=== PATIENT | male | born 1980 | race Caucasian/White ===

== ENCOUNTER 2024-05-05 14:44 | Outpatient (REF) | payer OTHER, SELFPAY ==
[2024-05-05 17:48] LABS: Alanine Aminotransferase 60 U/L (0-40); Albumin Level 4.7 g/dL (3.5-5.0); Alkaline Phosphatase 81 U/L (39-117); Aspartate Amino Transferase 25 U/L (5-37); Bilirubin Direct 0.1 mg/dL (0.0-0.5); Bilirubin Total 0.8 mg/dL (0.0-1.0); Cholesterol 283 mg/dL (<200); HDL Cholesterol 41 mg/dL (>40); Lipase 20 U/L (8-78); Total Protein 7.4 g/dL (6.5-8.0); Triglycerides 994 mg/dL (<150)
[2024-05-05 18:03] LABS: TSH reflex Free T4 1.76 uIU/mL (0.32-4.0)
[2024-05-05 18:17] LABS: Folate 6.8 ng/mL (> or = 4.0); Vitamin B12 362 pg/mL (200-900)
[2024-05-08 21:28] LABS: Transglutaminase Ab IgG <1.0 U/mL; Transglutaminase IgA <1.0 U/mL
[2024-05-10 13:53] LABS: Vitamin D 25-OH, D2 <4 ng/mL; Vitamin D 25-OH, D3 17 ng/mL; Vitamin D 25-OH, Total 17 ng/mL (30-100)
== END 2024-05-05 14:45 | disposition home or self-care (01) ==
LOC: HO.LAB 14:44
PROVIDERS: PCP Internal Medicine; Visit Provider Nurse Practitioner Family
DX: R10.9 Unspecified abdominal pain (principal); I25.10 Atherosclerotic heart disease of native coronary artery without angina pectoris; K59.00 Constipation, unspecified; E55.9 Vitamin D deficiency, unspecified
CPT/HCPCS: 36415; 80061; 80076; 82306; 82607; 82746; 83690; 84443; 86364

== ENCOUNTER 2024-05-05 14:44 | Outpatient (AMB) | payer OTHER, SELFPAY ==
--- NOTE | 2024-05-05 15:02 | A.OFFVIS_ITS ---
Vital Signs 05/05/24 15:14 Height 5 ft 7 in Weight 207 lb 10.807 oz BMI 32.5 BP 130/62 Blood Pressure Location Lt brachial Position Sitting Pulse 72 Pulse Source Pulse Oximeter Pulse Oximetry (%) 96 Oxygen Delivery Method Room Air Intake Visit Reasons: Abdominal pain Intake Note: Evelio presents in office today for an initial assessment visit. CC: Pt reports recent admission to [facility] ED x2 mos ago. Pt had started at and was transferred to ED based on concerns of possible bowel blockage. Pt reports that they had also noticed the presence of a moderate sized lump in the RLQ into their R flank. Pt states that this became worse after being seen at the ED. Pt reports presence of GERD sx, N/V, excessive flatulence and constipation and diarrhea intermittently. Pt states that they are frequently having abnormal stools and have not seen a normal BM for the past few months. Pt also reports that they have noticed that they have to have a BM almost immediately after eating. This does not happen with all intake, but happens frequently. Pt denies any previous of colo, or EGD. Pt does have pertinent family hx. Clinical Admissions Manager Required: No Accompanied by: Spouse Allergies amoxicillin Allergy (Intermediate, Verified 05/05/24 15:13) Rash Penicillins Allergy (Intermediate, Verified 05/05/24 15:13) Rash HPI HPI Abdominal pain: Details: 44-year-old male with no significant past medical history sent to us by urgent care provider. Patient is accompanied by his . Patient recently changed she was PCP currently is with [facility] and. In the past 4 months patient has been dealing with multiple GI symptoms. Patient states that he is having epigastric pain postprandially depending on what he eats. Patient has epigastric pain when he eats pizza and bread. Patient states that he feels very bloated and full. No no family or personal history of celiac disease. Patient was seen at urgent care and was sent to [facility] where he was told that nothing acute was going on and was sent home with MiraLax. Patient reports occasional nausea without vomiting. Reports occasional dyspepsia. Denies dysphagia or odynophagia. Patient denies any melena, hematochezia, unintentional weight loss or ribbon like stools. Patient does report that he feels like he is constipated. Reports occasional postprandial loose stool depending on what he eats, however for the most part he feels very constipated. Patient's white free ports that there is days when he is so bloated that his abdomen is very hard. Patient reports to be feeling gassy. Reports to have pain in his right lumbar and upper quadrant. Patient reports that sometimes the pain is very strong, sharp like pain. Patient states that he feels tender when he touches it. Patient also reports that he notices bulging when this happens. Patient states that when he presses he is able to belch and he feels relief. Patient reports that he is not on any particular diet, he states that he is trying to eat healthy. No restrictions so far. Open to any suggestions. PFSH Surgical History Hx of blepharoplasty [place] teeth extracted Family History Maternal Grandmother Colon cancer Maternal Aunt Colon cancer Father Pancreatic adenoma Social History Alcohol intake: current Comment: Socially typically. Pt typically has a few drinks/week. Patient Tobacco Use Status: Never used Tobacco Substance Use Type: Marijuana Review of Systems Const Denies weight gain and Denies weight loss ENT Reports no additional complaints, Reports dysphagia (Occasional) and Denies odynophagia Card Reports no additional complaints Resp Reports no additional complaints GI Reports abdominal pain, Reports belching, Denies melena, Reports bloating, Reports constipation, Reports dysphagia (Occasional), Denies excessive flatus, Reports dyspepsia, Reports heartburn, Denies diarrhea, Reports loose stools (Occasional postprandially), Denies nausea, Denies odynophagia and Denies vomiting Reports no additional complaints Musc Reports no additional complaints Neuro Reports no additional complaints Psych Reports no additional complaints Endo Reports no additional complaints Physical Exam Vital Signs: Last Vital Signs Pulse 72 05/05/24 15:14 BP 130/62 05/05/24 15:14 Pulse Ox 96 05/05/24 15:14 Oxygen Delivery Method Room Air 05/05/24 15:14 BMI result Body Mass Index 32.5 Const General: healthy appearing, no acute distress and well developed Nutritional Appearance: well nourished Orientation/consciousness: patient oriented x3 Resp Effort & Inspection: normal respiratory effort, able to speak in complete sentences, no tracheal deviation and symmetric chest movement Auscultation: clear to auscultation bilaterally Cardio Rate: regular rate GI Other: Right upper and lumbar area small tenderness area with some bulging suspecting ventral hernia. Inspection: Yes normal to inspection and No distended Palpation (GI): Soft to palpation, not firm, Tenderness to palpation present (GI) and No hepatosplenomegaly present Auscultation: Hypoactive bowel sounds present General: Yes no CVA tenderness Back/Spine/Pelvis Back: no CVA tenderness Skin General skin exam: elasticity normal, turgor normal and dry skin Neuro General: patient oriented x3 Psych Appearance: grossly normal Mental Status: mental status grossly normal Assessment & Plan Assessment & Plan (1) Postprandial abdominal bloating: Code(s): R14.0 - Abdominal distension (gaseous) (2) Postprandial epigastric pain: Code(s): R10.13 - Epigastric pain (3) GERD (gastroesophageal reflux disease): Code(s): K21.9 - Gastro-esophageal reflux disease without esophagitis Qualifiers: Esophagitis presence: esophagitis presence not specified Qualified Code(s): K21.9 - Gastro-esophageal reflux disease without esophagitis (4) Chronic idiopathic constipation: Code(s): K59.04 - Chronic idiopathic constipation (5) IBS (irritable bowel syndrome): Code(s): K58.9 - Irritable bowel syndrome, unspecified Qualifiers: Irritable bowel syndrome type: with both diarrhea and constipation Qualified Code(s): K58.2 - Mixed irritable bowel syndrome Plan Will start patient on Nexium daily. Patient states that he was given script for omeprazole, however he feels like it is not really helping that much. Alleviates some symptoms but he continues to have acid reflux and dyspepsia. Occasional dysphagia without odynophagia. Patient has predominant lead constipation, however he will have loose stools depending on what he eats. Will give him script for Dulcolax and will get probiotics and fiber to help him bulk stools. Will rule out celiac, pancreatitis, transaminitis, check his thyroid as well as vitamin D, B12 and folate levels. Mild tenderness to right side of his abdomen, small bulging when coughing. Patient will be sent for ultrasound to rule out ventral hernia and to see General surgery for initial consultation. He will follow-up in our office in 6-8 weeks, sooner if he will develop worsening symptoms. Both patient and his are agreeable to plan of care and verbalizes understanding of instructions. They were given the opportunity to ask questions and all questions answered. Thank you for allowing me to participate in his care Orders: Orders Lipase Today R10.9 - Unspecified abdominal pain Vitamin B12 and Folate Today R19.7 - Diarrhea, unspecified Lipid Panel Today I25.10 - Atherosclerotic heart disease of [place] coronary artery without angina pectoris Liver Panel Today R74.01 - Elevation of levels of liver transaminase levels Pancreatic Elastase-1 Today R10.9 - Unspecified abdominal pain Transglutaminase Ab IgG Today R10.9 - Unspecified abdominal pain Transglutaminase IgA Today R10.9 - Unspecified abdominal pain TSH reflex Free T4 Today K59.00 - Constipation, unspecified Vitamin D 25-OH (D2 and D3) Today E55.9 - Vitamin D deficiency, unspecified US abdomen limited Today K43.9 - Ventral hernia without obstruction or gangrene Referrals General Surgery Referral K43.9 - Ventral hernia without obstruction or gangrene Medications: New esomeprazole magnesium (Nexium) 40 mg PO DAILY 30 caps 5RF K21.9 - Gastro- esophageal reflux disease without esophagitis bisacodyl (Dulcolax (bisacodyl)) 10 mg (2 x 5 mg) PO BEDTIME 180 tabs 4RF Coding Level of Care Code New Pt Level 4 (18068) Diagnoses Postprandial abdominal bloating R14.0 Postprandial epigastric pain R10.13 Gastroesophageal reflux disease, unspecified whether esophagitis present K21.9 Esophagitis presence: esophagitis presence not specified Chronic idiopathic constipation K59.04 Irritable bowel syndrome with both constipation and diarrhea K58.2 Irritable bowel syndrome type: with both diarrhea and constipation Time Spent (min) 45 Comment 30 minutes spent with patient and additional 15 minutes spent reviewing his records
[2024-05-05 15:14] VITALS: BP 130/62; PULSE 72; O2SAT 96; BMI 32.5
== END 2024-05-05 15:52 | disposition home or self-care (01) ==
PROVIDERS: PCP Internal Medicine; Visit Provider Nurse Practitioner Family
DX: R14.0 Abdominal distension (gaseous) (principal); R10.13 Epigastric pain; K21.9 Gastro-esophageal reflux disease without esophagitis; K59.04 Chronic idiopathic constipation; K58.2 Mixed irritable bowel syndrome
CPT/HCPCS: 99204

== ENCOUNTER 2024-05-15 14:26 | Outpatient (REF) | payer OTHER, SELFPAY ==
[2024-05-24 21:44] LABS: Pancreatic Elastase-1 >500 mcg/g
== END 2024-05-15 14:27 | disposition home or self-care (01) ==
LOC: HO.LNP 14:26
PROVIDERS: Visit Provider Nurse Practitioner Family
DX: R10.9 Unspecified abdominal pain (principal)
CPT/HCPCS: 82656

== ENCOUNTER 2024-05-16 08:59 | Outpatient (AMB) | payer OTHER, SELFPAY ==
--- NOTE | 2024-05-16 09:00 | A.OFFVIS_ITS ---
Vital Signs 05/16/24 09:06 Height 5 ft 7 in Weight 212 lb BMI 33.2 BP 108/51 L Blood Pressure Location Rt brachial Position Sitting Pulse 78 Intake Visit Reasons: Abdominal pain Intake Note: Patient referred by Lamar Ley NP for ventral hernia. Patient c/o: rt abdominal pain. U/S scheduled 05-22-24. Digital Account Manager Required: No Accompanied by: Self / Same As Patient Allergies amoxicillin Allergy (Intermediate, Verified 05/16/24 09:05) Rash Penicillins Allergy (Intermediate, Verified 05/16/24 09:05) Rash HPI Comments Details: Patient presents for evaluation of right flank pain. He has had this for several months time. It is improving. Patient was seen by Gastroenterology and was felt that this was abdominal wall issue and not a GI issue. He was scheduled for an ultrasound of the area. Initially patient had been seen at [facility] were he states there was a CT of the abdomen and pelvis which according to the patient was within normal limits. We will attempt to obtain those results. 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 He lifts heavy objects including tags and cases of beer. He has no acute other GI issues or complaints. Chart was reviewed and patient evaluated [facility] Surgical History Hx of blepharoplasty [place] teeth extracted Family History Maternal Grandmother Colon cancer Maternal Aunt Colon cancer Father Pancreatic adenoma Social History Alcohol intake: current Comment: Socially typically. Pt typically has a few drinks/week. Patient Tobacco Use Status: Never used Tobacco Substance Use Type: Marijuana Physical Exam Vital Signs: Last Vital Signs Pulse 78 05/16/24 09:06 BP 108/51 L 05/16/24 09:06 BMI result Body Mass Index 33.2 GI Other: Patient was examined both supine and standing with Valsalva. Mildly corpulent abdomen. Bilateral groin exam negative. Genitalia within normal limits. Abdomen benign. No umbilical hernia. Patient's area of symptoms in the right flank demonstrate no obvious external evidence of ecchymosis or bruising. No flank hernia demonstrated. Assessment & Plan Assessment & Plan (1) Right flank pain: Code(s): R10.9 - Unspecified abdominal pain Category: Surgical Plan At present, there are no acute surgical issues. Patient most probably had a muscle strain/pull and his symptoms are improving. He is scheduled for the ultrasound as noted above and I encouraged him to get this. CT scan results from [facility] also be obtained. Patient will otherwise follow-up p.r.n. or based on ultrasound findings he is to call the office for further follow-up. All questions answered. Coding Level of Care Code New Pt Level 4 (28992) Diagnoses Right flank pain R10.9
[2024-05-16 09:06] VITALS: BP 108/51; PULSE 78; BMI 33.2
== END 2024-05-16 09:16 | disposition home or self-care (01) ==
PROVIDERS: PCP Internal Medicine; Referring Provider Nurse Practitioner Family; Visit Provider Surgery
DX: R10.9 Unspecified abdominal pain (principal)
CPT/HCPCS: 99204

== ENCOUNTER → 2024-05-16 08:59 | Outpatient (BNVA) | payer OTHER, SELFPAY | PROVIDERS: PCP Internal Medicine; Referring Provider Nurse Practitioner Family; Visit Provider Surgery ==

== ENCOUNTER 2024-05-22 08:27 | Outpatient (REF) | payer OTHER, SELFPAY ==
--- NOTE | ~2024-05-22 | US_ITS ---
EXAMINATION: US ABDOMEN LIMITED CLINICAL INFORMATION: Ventral hernia without obstruction or gangrene. Right upper quadrant question ventral hernia. COMPARISON: None available. TECHNIQUE: Real-time imaging of the region of concern in the right flank and right lower quadrant. FINDINGS: No evidence of hernia. Incidentally noted 0.3 cm nonmobile adherent stone versus polyp in the gallbladder, otherwise normal appearance of the gallbladder. No discrete organized collection or mass. US/US abdomen limited IMPRESSION: 1. No significant abnormality. No evidence of hernia. 2. Incidentally noted 0.3 cm adherent stone versus polyp in the gallbladder, recommend follow-up with ultrasound in 6-12 months. Electronically signed by: Sintia Helm MD 05/22/2024 11:13 AM EDT
== END 2024-05-22 08:28 | disposition home or self-care (01) ==
LOC: HO.US 08:27
PROVIDERS: PCP Internal Medicine; Visit Provider Nurse Practitioner Family
DX: K43.9 Ventral hernia without obstruction or gangrene (principal)
CPT/HCPCS: 76705

== ENCOUNTER 2024-06-12 14:03 | Outpatient (AMB) | payer OTHER, SELFPAY ==
--- NOTE | 2024-06-12 14:08 | A.OFFVIS_ITS ---
Vital Signs 06/12/24 14:10 Height 5 ft 7 in Weight 212 lb BMI 33.2 BP 122/78 Blood Pressure Location Rt brachial Position Sitting Pulse 78 Intake Visit Reasons: Ventral Hernia Intake Note: Patient here to discuss ABD US from 05-22-24. Patient c/o: abdominal pain. 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 He has symptoms of moderately improved. Ultrasound of the area demonstrated no evidence of any hernia or any other defect. Incidental finding was of a 3 mm gallbladder polyp. [facility] Surgical History Hx of blepharoplasty [place] teeth extracted Family History Maternal Grandmother Colon cancer Maternal Aunt Colon cancer Father Pancreatic adenoma Social History Alcohol intake: current Comment: Socially typically. Pt typically has a few drinks/week. Patient Tobacco Use Status: Never used Tobacco Substance Use Type: Marijuana Physical Exam Vital Signs: Last Vital Signs Pulse 78 06/12/24 14:10 BP 122/78 06/12/24 14:10 BMI result Body Mass Index 33.2 GI Other: Abdomen moderately corpulent. Soft, benign. Mild right flank tenderness but improved from last visit. Assessment & Plan Assessment & Plan (1) Gallbladder polyp: Code(s): K82.4 - Cholesterolosis of gallbladder Category: Surgical Plan: 1. Patient will have a six-month follow-up surveillance ultrasound of the gallbladder to follow up with a polyp. 2. Right flank discomfort will be managed conservatively with nonsteroidal analgesics, warm compresses, and avoiding strenuous activities. All questions answered. Patient will see me as directed above or p.r.n.. Orders: Orders US abdomen limited 6 Months K82.4 - Cholesterolosis of gallbladder Coding Level of Care Code Est Pt Level 4 (99287) Diagnoses Gallbladder polyp K82.4
[2024-06-12 14:10] VITALS: BP 122/78; PULSE 78; BMI 33.2
== END 2024-06-12 14:19 | disposition home or self-care (01) ==
PROVIDERS: PCP Internal Medicine; Visit Provider Surgery
DX: K82.4 Cholesterolosis of gallbladder (principal)
CPT/HCPCS: 99214

== ENCOUNTER 2024-06-30 09:11 | Outpatient (AMB) | payer OTHER, SELFPAY ==
[2024-06-30 09:16] VITALS: BP 106/66; PULSE 66; O2SAT 98; BMI 32.0
--- NOTE | 2024-06-30 09:16 | A.OFFVIS_ITS ---
Vital Signs 06/30/24 09:16 Height 5 ft 7 in Weight 204 lb 2.369 oz BMI 32.0 BP 106/66 Blood Pressure Location Lt brachial Position Sitting Pulse 66 Pulse Source Pulse Oximeter Pulse Oximetry (%) 98 Oxygen Delivery Method Room Air Intake Visit Reasons: 8 week follow up Intake Note: Evelio presents in office today for a scheduled 8 week FUV. CC; Any changes or new sx since last visit? Pt wanted to discuss colo and EGD based on recent appt with Dr. Anderson. Any labs or diagnostics since last visit? ?Stool test done, imaging done. Medical Billing Service Required: No Allergies amoxicillin Allergy (Intermediate, Verified 06/30/24 09:16) Rash Penicillins Allergy (Intermediate, Verified 06/30/24 09:16) Rash HPI HPI 8 week follow up: Details: LAST VISIT: Postprandial abdominal bloating Postprandial epigastric pain GERD (gastroesophageal reflux disease) Chronic idiopathic constipation IBS (irritable bowel syndrome) Plan Will start patient on Nexium daily. Patient states that he was given script for omeprazole, however he feels like it is not really helping that much. Alleviates some symptoms but he continues to have acid reflux and dyspepsia. Occasional dysphagia without odynophagia. Patient has predominant lead constipation, however he will have loose stools depending on what he eats. Will give him script for Dulcolax and will get probiotics and fiber to help him bulk stools. Will rule out celiac, pancreatitis, transaminitis, check his thyroid as well as vitamin D, B12 and folate levels. Mild tenderness to right side of his abdomen, small bulging when coughing. Patient will be sent for ultrasound to rule out ventral hernia and to see General surgery for initial consultation. He will follow-up in our office in 6-8 weeks, sooner if he will develop worsening symptoms. Both patient and his are agreeable to plan of care and verbalizes understanding of instructions. They were given the opportunity to ask questions and all questions answered. ? Thank you for allowing me to participate in his care Orders Orders Lipase Today R10.9 Vitamin B12 and Folate Today R19.7 Lipid Panel Today I25.10 Liver Panel Today R74.01 Pancreatic Elastase-1 Today R10.9 Transglutaminase Ab IgG Today R10.9 Transglutaminase IgA Today R10.9 TSH reflex Free T4 Today K59.00 Vitamin D 25-OH (D2 and D3) Today E55.9 US abdomen limited Today K43.9 Referrals General Surgery Referral K43.9 Medications New esomeprazole magnesium (Nexium) 40 mg PO DAILY 30 caps 5RF K21.9 bisacodyl (Dulcolax (bisacodyl)) 10 mg (2 x 5 mg) PO BEDTIME 180 tabs 4RF TODAY'S VISIT Patient is here today for follow-up and to discuss lab results. Patient reports that he currently is feeling better. Takes omeprazole in the morning before breakfast. Increase fiber intake as well as taking supplement of fiber. Reports that he no longer has postprandial diarrhea. However occasionally dep ending on what he eats he might have postprandial loose stools. He is taking bisacodyl tablets at bedtime and is moving his bowels better. Lab work done and very high triglycerides. Patient denies any abdominal pain or discomfort. No prior history of pancreatitis. Admits to occasionally drinking about 2-3 times only. Patient denies any melena, hematochezia, unintentional weight loss or ribbon like stools. Patient reports family history of CRC. Feels like acid reflux is under better control with the Nexium. Patient also reports that he tried to change his diet. Patient was seen by general surgeon for what we thought was ventral hernia, however ultrasound was obtained and no abdominal hernias were identified. Currently patient denies having any abdominal pain. Incidental finding of gallbladder polyp which will be surveyed by another ultrasound in 6 months. Patient was found to have very high triglycerides. Patient does admit that when he was younger had elevated triglycerides and had to be on fenofibrate. Patient currently does not have PCP, we will try to help him find PCP within the work [facility] Medical History (Updated 06/30/24 @ 09:47 by Silvina Ley [employer]PER[employer]-) High triglycerides Surgical History Hx of blepharoplasty [place] teeth extracted Family History Maternal Grandmother Colon cancer Maternal Aunt Colon cancer Father Pancreatic adenoma Social History Alcohol intake: current Comment: Socially typically. Pt typically has a few drinks/week. Patient Tobacco Use Status: Never used Tobacco Substance Use Type: Marijuana Review of Systems Const Denies weight gain and Denies weight loss ENT Reports no additional complaints, Denies dysphagia and Denies odynophagia Card Reports no additional complaints Resp Reports no additional complaints GI Denies abdominal pain, Denies belching, Denies melena, Denies bloating, Denies change in bowel habits, Denies dysphagia, Denies excessive flatus, Denies dyspepsia, Denies heartburn, Denies diarrhea, Denies loose stools, Denies nausea, Denies odynophagia and Denies vomiting Reports no additional complaints Musc Reports no additional complaints Neuro Reports no additional complaints Psych Reports no additional complaints Endo Reports no additional complaints Physical Exam Vital Signs: Last Vital Signs Pulse 66 06/30/24 09:16 BP 106/66 06/30/24 09:16 Pulse Ox 98 06/30/24 09:16 Oxygen Delivery Method Room Air 06/30/24 09:16 BMI result Body Mass Index 32.0 Const General: healthy appearing, no acute distress and well developed Nutritional Appearance: well nourished Orientation/consciousness: patient oriented x3 Resp Effort & Inspection: normal respiratory effort, able to speak in complete sentences, no tracheal deviation and symmetric chest movement Auscultation: clear to auscultation bilaterally Cardio Rate: regular rate GI Other: Right upper and lumbar area small tenderness area with some bulging suspecting ventral hernia. Inspection: Yes normal to inspection and No distended Palpation (GI): Soft to palpation, not firm, Tenderness to palpation present (GI) and No hepatosplenomegaly present Auscultation: Hypoactive bowel sounds present General: Yes no CVA tenderness Back/Spine/Pelvis Back: no CVA tenderness Skin General skin exam: elasticity normal, turgor normal and dry skin Neuro General: patient oriented x3 Psych Appearance: grossly normal Mental Status: mental status grossly normal Results Reviewed Results Reviewed: Laboratory Tests 05/05/24 05/15/24 16:16 12:30 Total Bilirubin 0.8 Direct Bilirubin 0.1 AST 25 ALT 60 H Triglycerides 994 H Cholesterol 283 H Lipase 20 Vitamin B12 362 25-OH Vitamin D Total 17 L Folate 6.8 TSH 1.76 Stool Pancreat Elastase >500 Tiss Transglutamin IgG <1.0 Tiss Transglutamin IgA <1.0 Assessment & Plan Assessment & Plan (1) High triglycerides: Code(s): E78.1 - Pure hyperglyceridemia Category: Medical (2) Gallbladder polyp: Code(s): K82.4 - Cholesterolosis of gallbladder Category: Surgical (3) Postprandial abdominal bloating: Code(s): R14.0 - Abdominal distension (gaseous) (4) Postprandial epigastric pain: Code(s): R10.13 - Epigastric pain (5) GERD (gastroesophageal reflux disease): Code(s): K21.9 - Gastro-esophageal reflux disease without esophagitis Qualifiers: Esophagitis presence: esophagitis presence not specified Qualified Code(s): K21.9 - Gastro-esophageal reflux disease without esophagitis (6) Chronic idiopathic constipation: Code(s): K59.04 - Chronic idiopathic constipation (7) IBS (irritable bowel syndrome): Code(s): K58.9 - Irritable bowel syndrome, unspecified Qualifiers: Irritable bowel syndrome type: with both diarrhea and constipation Qualified Code(s): K58.2 - Mixed irritable bowel syndrome Plan Continue current management with Nexium. Continue avoiding dietary triggers and late night snacking. High triglycerides, patient will start taking fenofibrate, fish oil and niacin. Avoid alcohol and food high in fat. Increase fiber, fluid intake and activity to promote better bowel motility. Patient will return in 2- 3 months to discuss going for colonoscopy and upper endoscopy. Message sent to surgical schedulers to book procedure for patient. We will discuss prep next visit. He is agreeable to current plan of care and verbalizes understanding of instructions. He was given the opportunity to ask questions and all questions answered. Thank you for allowing me to participate in his care Medications: New cholecalciferol (vitamin D3) 100 mcg (2 x 50 mcg (2,000 unit)) PO DAILY 180 caps 3RF R79.89 - Other specified abnormal findings of blood chemistry bisacodyl (Dulcolax (bisacodyl)) take 4 tabs at noon the day before your colonoscopy 20 mg (4 x 5 mg) PO ONCE 1 day 4 tabs 0RF Z12.11 - Encounter for screening for malignant neoplasm of colon niacin 500 mg PO DAILY 90 tabs 2RF E78.1 - Pure hyperglyceridemia polyethylene glycol 3350 (Miralax) As directed by gastroenterology [facility] at [facility] 238 grams PO ONCE 238 grams 0RF Z12.11 - Encounter for screening for malignant neoplasm of colon fenofibrate 160 mg PO DAILY 90 tabs 2RF Coding Level of Care Code Est Pt Level 4 (65045) Diagnoses High triglycerides E78.1 Gallbladder polyp K82.4 Postprandial abdominal bloating R14.0 Postprandial epigastric pain R10.13 Gastroesophageal reflux disease, unspecified whether esophagitis present K21.9 Esophagitis presence: esophagitis presence not specified Chronic idiopathic constipation K59.04 Irritable bowel syndrome with both constipation and diarrhea K58.2 Irritable bowel syndrome type: with both diarrhea and constipation Time Spent (min) 35 Comment 20 minutes spent with patient and additional 15 minutes spent reviewing his records
== END 2024-06-30 09:57 | disposition home or self-care (01) ==
PROVIDERS: PCP Internal Medicine; Visit Provider Nurse Practitioner Family
DX: E78.1 Pure hyperglyceridemia (principal); K82.4 Cholesterolosis of gallbladder; R14.0 Abdominal distension (gaseous); R10.13 Epigastric pain; K21.9 Gastro-esophageal reflux disease without esophagitis; K59.04 Chronic idiopathic constipation; K58.2 Mixed irritable bowel syndrome
CPT/HCPCS: 99214

== ENCOUNTER → 2024-06-30 09:11 | Outpatient (BNVA) | payer OTHER, SELFPAY | PROVIDERS: PCP Internal Medicine; Visit Provider Nurse Practitioner Family ==

== ENCOUNTER 2024-08-23 11:00 | Outpatient (AMB) | payer OTHER, SELFPAY ==
[2024-08-23 11:28] VITALS: BP 110/60; PULSE 67; O2SAT 95; BMI 32.9
--- NOTE | 2024-08-23 11:28 | MHC.PC.OV ---
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 [place] Required: No Accompanied by: Self / Same As Patient Allergies amoxicillin Allergy (Intermediate, Verified 08/23/24 11:42) Rash Penicillins Allergy (Intermediate, Verified 08/23/24 11:42) Rash Medication List - Last Reconciled 08/23/24 by FERNANDO Chávez bisacodyl (Dulcolax (bisacodyl)) 10 mg (2 x 5 mg) PO BEDTIME bisacodyl (Dulcolax (bisacodyl)) 20 mg (4 x 5 mg) PO ONCE 1 day cholecalciferol (vitamin D3) 100 mcg (2 x 50 mcg (2,000 unit)) PO DAILY esomeprazole magnesium (Nexium) 40 mg PO DAILY fenofibrate 160 mg PO DAILY methylcellulose (laxative) (Fiber Therapy (methylcellulose)) PO niacin 500 mg PO DAILY polyethylene glycol 3350 (Miralax) 238 grams PO ONCE Tobacco use date assessed: 08/23/24 Dental Screening Dental Screen Date: 08/23/24 Did you have a dental visit in the last 12 months?: No Did you have a dental problem in the last 6 months where you did not have access to dental care?: No Was dental information given to patient?: No HPI 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 Mckoy, author Last visit: years ago Last PE: years Specialist:GI OBGYN:n/a Past medical history: asthma rescue inhaler, diverticulosis Family HX: both parents had ca (mom-multiple).father-started in penile then metastasize in prostate, both parents passed, father had high triglycerides The patient is a 44-year-old male presenting to establish care Patient reports that he is feeling okay. Denies chest pain, shortness of breath, heart palpitation or dizziness Reports that he has some stomach issues and has been seeing GI Reports that his symptoms were mainly constipation and heartburn Patient also reports that he was told before that he has high triglycerides And was started on medication along with dietary modifications He also reports low energy with improvement since started on vitamin-D Will have the patient do blood work and follow up in 2 weeks for physical PFSH Medical History (Updated 08/24/24 @ 17:52 by FERNANDO Chávez) High triglycerides Surgical History Hx of blepharoplasty [place] teeth extracted Family History Maternal Grandmother Colon cancer Maternal Aunt Colon cancer Father Pancreatic adenoma Social History Housing: House Alcohol intake: current Comment: Socially typically. Pt typically has a few drinks/week. Patient Tobacco Use Status: Never used Tobacco e-Cigarette/Vaping Use: Never Used Substance Use Type: Marijuana service: No Current occupational status: employed Current occupational exposures/hazards: No Cognitive needs: No Hearing needs: No Vision needs: No Questionnaire PHQ-9 Over the last 2 weeks, how often have you been bothered by any of the following problems? 1. Little interest or pleasure in doing things: not at all 2. Feeling down, depressed, or hopeless: not at all 3. Trouble falling or staying asleep, or sleeping too much: not at all 4. Feeling tired or having little energy: nearly every day 5. Poor appetite or overeating: several days 6. Feeling bad about yourself - or that you are a failure or have let yourself or your family down: not at all 7. Trouble concentrating on things, such as reading the newspaper or watching television: not at all 8. Moving or speaking so slowly that other people could have noticed. Or the opposite - being so fidgety or restless that you have been moving around a lot more than usual: not at all 9. Thoughts that you would be better off or of hurting yourself in some way: not at all Total score: 4 Depression Screening Interpretation: Negative Depression Screening Done: Yes 76044 - PHQ-9 Billing: Yes Source: Developed by Drs. Dwayne Peres, Vilma Cantu, Alex Oneil and colleagues, with an educational avelino from [employer]. Thrive Questionnaire Date Thrive assessed: 08/23/24 I am a: Patient What is your living situation today?: I have a steady place to live Within the past 12 months, did the food you bought not last and you didn't have the money to get more?: Never true Within the past 12 months, did you worry whether your food would run out before you got money to buy more?: Never true Do you have trouble paying for medicines?: No Do you have trouble getting transportation to medical appointments?: No Do you have trouble paying your heating and electricity bill?: No Do you have trouble taking care of your child, family member or friend?: No Do you have trouble with day-to-day activities such as bathing, preparing meals, shopping, managing finances, etc.?: No Are you currently unemployed and looking for a job?: No Are you interested in more education?: No Please select the resources that you would like help with: Job search/training Currently or been in a relationship where the following occur: No concerns reported THRIVE Score: 0 AUDIT C Alcohol Use Questionnaire (AUDIT-C) 1. How often do you have a drink containing alcohol?: Monthly or less 2. How many drinks containing alcohol do you have on a typical day when you are drinking?: 1 or 2 3. How often do you have six or more drinks on one occasion?: Less than monthly Total Score: 2 Score Reviewed/Action Taken: Yes ABDOUL-7 AMB Questionnaire ABDOUL-7 Date ABDOUL - 7 assessed: 08/23/24 Feeling nervous, anxious, or on edge: 1 = Several days Not being able to stop or control worryin = More than half the days Worrying too much about different things: 0 = Not at all Trouble relaxin = Not at all Being so restless that it is hard to sit still: 0 = Not at all Becoming easily annoyed or irritable: 1 = Several days Feeling afraid as if something awful might happen: 0 = Not at all Total ABDOUL-7 score (0-4 normal; 5-9 mild; 10-14 moderate; 15-21 severe): 4 Source: Developed by Drs. Dwayne Peres, Vilma Cantu, Alex Oneil and colleagues, with an educational avelino from [employer] ABDOUL-7 Assessment Billing ABDOUL-7 Assessment Tool: ABDOUL-7 Assessment 86067 Review of Systems Const Details: Denies chills, +low energy, Denies fever(s), Denies headache(s) and Denies weakness HEENT Denies change in vision, Denies dizziness, Denies headache(s), Denies hearing loss, Denies nasal congestion, Denies sinus pain, Denies sinus pressure and Denies sore throat Card Denies chest pain, Denies lightheadedness, Denies dyspnea and Denies other (palpitations) Resp Denies cough, Denies dyspnea and Denies wheezing GI Denies abdominal pain, Denies melena, Denies hematochezia, +constipation, + dyspepsia and Denies nausea Denies hematuria and Denies dysuria Musc Denies abnormal gait, Denies myalgias, Denies arthralgias, Denies numbness and Denies tingling Skin/Breast Denies rash, Denies unusual bruising and Denies wounds Neuro Denies abnormal gait, Denies dizziness, Denies headache(s), Denies memory loss, Denies numbness, Denies Sensory deficit (Neuro), Denies tingling and Denies weakness Psych Denies anxiety, Denies depression and Denies memory loss Endo Denies cold intolerance, Denies fatigue, Denies heat intolerance, Denies polydipsia and Denies polyuria Ahsan/Lymph Denies easy bleeding and Denies easy bruising Aller/Immun Denies wheezing Physical exam (Primary Care) Vital Signs: Last Vital Signs Pulse 67 08/23/24 11:28 BP 110/60 08/23/24 11:28 Pulse Ox 95 08/23/24 11:28 Oxygen Delivery Method Room Air 08/23/24 11:28 BMI result Body Mass Index 32.9 Tobacco/Smoking Status: Tobacco use Status Tobacco use date assessed 08/23/24 08/23/24 11:31 Patient Tobacco Use Status Never used Tobacco 08/23/24 11:31 e-Cigarette/Vaping Use Never Used 08/23/24 11:37 PHQ-9: PHQ-9 Score PHQ-9: Total score 4 08/24/24 17:36 Depression Screening Interpretation: Negative Thrive Assessment: Date of Thrive Assessment Date Thrive assessed 08/23/24 08/23/24 11:31 Currently or been in a relationship where the following occur: No concerns reported Const Other: General: no acute distress, well developed, alert and awake Nutritional Appearance: well nourished Orientation/consciousness: patient oriented x3 HENMO Head: Yes normocephalic and Yes atraumatic Eyes Pupils: Equal, round and reactive pupils present and Pupil accommodation reflex normal EOM: EOMs intact bilaterally Neck Neck: Yes normal visual inspection, Yes no lymphadenopathy and Yes trachea midline Thyroid: Thyroid normal Carotids: no bruits Lymphatic: no lymphadenopathy noted Chest Chest palpation & inspection: normal inspection of the chest Resp Effort & Inspection: normal respiratory effort Auscultation: clear to auscultation bilaterally Cardio Rate: regular rate Rhythm: regular rhythm Heart sounds: S1 normal heart sound present, S2 normal heart sound present, no gallops, no murmurs and no rubs Bruits: no abdominal aortic bruits and no carotid bruits GI Palpation (GI): No Abdominal aortic bruit present, Soft to palpation, nontender, No hepatosplenomegaly present and No Rebound tenderness present Auscultation: normal bowel sounds General: Yes no CVA tenderness Skin General: warm and dry. Normal skin color. Normal skin turgor Lesions: no lesions Nails: normal Neuro General: patient oriented x3, gait normal Cranial nerves: Yes Equal, round and reactive pupils present Cognition (Neuro): normal cognition Gait exam (Neuro): Normal gait present Extrem General: Yes normal to inspection, No edema and No calf tenderness Psych Appearance: grossly normal Affect: normal affect Attitude: cooperative Thought process: Normal thought process present Coding Level of Care Code New Pt Level 3 (15366) Diagnoses Chronic idiopathic constipation K59.04 Constipation type: chronic idiopathic constipation Low energy R53.83 High triglycerides E78.1 Additional Codes ABDOUL-7 Assessment Billing - ABDOUL-7 Assessment Tool: ABDOUL-7 Assessment 70190 ([id number]) PHQ-9 - 80870 - PHQ-9 Billing: Yes ([id number]) Time Spent (min) 29 Assessment & Plan Assessment & Plan (1) Constipation: Code(s): K59.00 - Constipation, unspecified Category: Medical Qualifiers: Constipation type: chronic idiopathic constipation Qualified Code(s): K59.04 - Chronic idiopathic constipation Plan: Continue bisacodyl 10 mg at bedtime, methylcellulose fiber Increase fluids hydration Follow up with GI as scheduled (2) Low energy: Code(s): R53.83 - Other fatigue Category: Medical Plan: Reports some improvement since being on vitamin-D supplement Will obtain labs, including a testosterone level (3) High triglycerides: Code(s): E78.1 - Pure hyperglyceridemia Category: Medical Plan: Reinforced a diet low in cholesterol/activity as tolerated Continue fenofibrate 160 mg daily and niacin 500 mg daily Plan To return in 2 weeks for his annual physical examination Orders: Orders Comprehensive [place]. Panel Fast 08/23/24 E78.1 - Pure hyperglyceridemia, Z00.00 - Encounter for general adult medical examination without abnormal findings Glucose Fasting 08/23/24 E78.1 - Pure hyperglyceridemia, Z00.00 - Encounter for general adult medical examination without abnormal findings Complete Blood Count Auto Diff 08/23/24 E78.1 - Pure hyperglyceridemia, Z00.00 - Encounter for general adult medical examination without abnormal findings Vitamin D 25-OH Total 08/23/24 E78.1 - Pure hyperglyceridemia, Z00.00 - Encounter for general adult medical examination without abnormal findings Lipid Panel 08/23/24 E78.1 - Pure hyperglyceridemia, Z00.00 - Encounter for general adult medical examination without abnormal findings TSH reflex Free T4 08/23/24 E78.1 - Pure hyperglyceridemia, Z00.00 - Encounter for general adult medical examination without abnormal findings UA CC w/rflx Micro + Cult 08/23/24 E78.1 - Pure hyperglyceridemia, Z00.00 - Encounter for general adult medical examination without abnormal findings Testosterone, Free/Total 08/23/24 R53.83 - Other fatigue
--- OUTSIDE RECORDS SUMMARY | 2024-08-23 13:20 | XMS_ITS | Clinical Summary ---
Author Organization [facility] ity Address [address] [place] [address] Care Team Providers Care Drain Cleaner Name Role Phone Unavailable Primary Care Provider Unavailabl e Social History Tobacco Use Types Packs/Day Years Used Date Smoking Tobacco: Never Assessed Sex and Gender Information Value Date Recorded Sex Assigned at Not on file Gender Identity Not on file Sexual Orientation Not on file Plan of Treatment Health Maintenance Due Date Last Done Comments DTaP,Tdap,and Td Vaccines (1 - Tdap) 1999 Hepatitis B Vaccines (1 of 3 - 19+ 3-dose series) 1999 COVID-19 Vaccine (2023-2 5 season) 2024 Influenza Vaccine (#1) 2024 Cholesterol Screening (Lipid Panel) 05/04/2024 Depression Screening 05/04/2024 HIV Screening 05/04/2024 Hepatitis C Screening 05/04/2024 Social Influencers of Health Screening 05/04/2024 HIB Vaccines Aged Out No longer eligi ble based on patient's age to complete this topic HPV Vaccines Aged Out No longer eligi ble based on patient's age to complete this topic Hepatitis A Vaccines Aged Out No long er eligible based on patient's age to complete this topic IPV Vaccines Aged Out No longer eligi ble based on patient's age to complete this topic MMR Vaccines Aged Out No longer eligi ble based on patient's age to complete this topic Meningococcal ACWY Vaccine Aged Out N o longer eligible based on patient's age to complete this topic Pneumococcal Vaccine: Pediat rics (0 to 5 Years) and At-Risk Patients (6 to 64 Years) Aged Out No longer eligible b ased on patient's age to complete this topic RSV Immunization Patients Un sarahy 20 months Aged Out No longer eligible b ased on patient's age to complete this topic Varicella Vaccines Aged Out No longer eligible based on patient's age to complete this topic
== END 2024-08-23 12:05 | disposition home or self-care (01) ==
DX: K59.04 Chronic idiopathic constipation (principal); R53.83 Other fatigue; E78.1 Pure hyperglyceridemia

== ENCOUNTER → 2024-08-23 11:00 | Outpatient (BNVA) | payer OTHER, SELFPAY | DX: K59.04 Chronic idiopathic constipation (principal); R53.83 Other fatigue; E78.1 Pure hyperglyceridemia; Z79.899 Other long term (current) drug therapy | CPT/HCPCS: 96127 ==

== ENCOUNTER 2024-09-04 10:51 | Outpatient (REF) | payer OTHER, SELFPAY ==
[2024-09-04 11:43] LABS: Appearance Urine Clear; Color Urine Yellow; Glucose Urine UA Negative (Negative); Leukocyte Esterase Urine Negative (Negative); Nitrite Urine Negative (Negative); PH >= 9.0 (5.0-9.0); Specific Gravity - Urine 1.025 (1.005-1.025); Urine Blood Negative (Negative); Urine Ketones Negative (Negative); Urine Protein Trace mg/dL (Neg-Trace)
--- OUTSIDE RECORDS SUMMARY | 2024-09-04 11:55 | XMS_ITS | Clinical Summary ---
Author Organization [facility] ity Address [address] [place] [address] Care Team Providers Care Education Dean Name Role Phone Unavailable Primary Care Provider Unavailabl e Social History Tobacco Use Types Packs/Day Years Used Date Smoking Tobacco: Never Assessed Sex and Gender Information Value Date Recorded Sex Assigned at Not on file Legal Sex Male 3:44 PM EDT Gender Identity Not on file Sexual Orientation Not on file Plan of Treatment Health Maintenance Due Date Last Done Comments DTaP,Tdap,and Td Vaccines (1 - Tdap) 1987 Hepatitis B Vaccines (1 of 3 - [...] patient's age to complete this topic Meningococcal B Vacine Aged Out No lo nger eligible based on patient's age to complete [...]
[2024-09-04 12:24] LABS: Alanine Aminotransferase 96 U/L (0-40); Albumin Level 4.5 g/dL (3.5-5.0); Alkaline Phosphatase 64 U/L (39-117); Anion Gap 13 (12-20); Aspartate Amino Transferase 39 U/L (5-37); Bilirubin Total 0.6 mg/dL (0.0-1.0); Blood Urea Nitrogen 15 mg/dL (9-16); Calcium 9.6 mg/dL (8.4-10.2); Carbon Dioxide 29 mmol/L (22-29); Chloride 104 mmol/L (96-108); Cholesterol 222 mg/dL (<200); Estimated Glomerular Filt Rate > 60; Glucose Fasting 109 mg/dL (60-99); HDL Cholesterol 39 mg/dL (>40); LDL Cholesterol Calculated 145 mg/dL (<100); Potassium 4.5 mmol/L (3.3-5.1); Sodium 141 mmol/L (135-145); Total Protein 7.2 g/dL (6.5-8.0); Triglycerides 193 mg/dL (<150)
[2024-09-04 12:38] LABS: TSH reflex Free T4 1.14 uIU/mL (0.32-4.0); Vitamin D 25-OH Total 37.7 ng/mL (>30)
== END 2024-09-04 10:52 | disposition home or self-care (01) ==
LOC: HO.LAB 10:51
DX: Z00.00 Encounter for general adult medical examination without abnormal findings (principal); E78.1 Pure hyperglyceridemia
CPT/HCPCS: 36415; 80053; 80061; 81003; 82306; 84443

== ENCOUNTER 2024-09-07 12:46 | Outpatient (AMB) | payer OTHER, SELFPAY ==
--- NOTE | 2024-09-07 12:49 | A.OFFPC_ITS ---
Vital Signs 09/07/24 12:50 Height 5 ft 7 in Weight 217 lb 2 oz BMI 34.0 BP 100/60 Blood Pressure Location Lt brachial Position Sitting Pulse 73 Pulse Source Pulse Oximeter Pulse Oximetry (%) 96 Oxygen Delivery Method Room Air Intake Visit Reasons: annual physical Assembly Line Leader Required: No Accompanied by: Self / Same As Patient Allergies amoxicillin Allergy (Intermediate, Verified 09/07/24 13:04) Rash Penicillins Allergy (Intermediate, Verified 09/07/24 13:04) Rash Medication List - Last Reconciled 09/07/24 by FERNANDO Chávez bisacodyl (Dulcolax (bisacodyl)) 10 mg (2 x 5 mg) PO BEDTIME bisacodyl (Dulcolax (bisacodyl)) 20 mg (4 x 5 mg) PO ONCE 1 day cholecalciferol (vitamin D3) 100 mcg (2 x 50 mcg (2,000 unit)) PO DAILY esomeprazole magnesium 40 mg PO DAILY fenofibrate 160 mg PO DAILY methylcellulose (laxative) (Fiber Therapy (methylcellulose)) PO niacin 500 mg PO DAILY polyethylene glycol 3350 (Miralax) 238 grams PO ONCE Tobacco use date assessed: 09/07/24 Dental Screening Dental Screen Date: 09/07/24 Did you have a dental visit in the last 12 months?: No Did you have a dental problem in the last 6 months where you did not have access to dental care?: No Was dental information given to patient?: No HPI annual physical HPI Details Dentist: not in awhile Eye: due, last year Snellen: Right: Left: Corrected vision: glasses STI screening:n/a Colonoscopy:n/a Flu: decline COVID: x3 Tdap: not sure Diet: cutting down on high cholesterol foods Exercise:active at work The patient is a 44-year-old male who was presenting for annual physical Patient reports that he is feeling good today and has no complaints Denies shortness of breath, chest pain, heart palpitation, and dizziness Denies abdominal pain or change in bowel habits Denies dysuria other urinary symptoms PFSH Medical History (Updated 09/07/24 @ 13:45 by FERNANDO Chávez) High triglycerides Surgical History Hx of blepharoplasty [place] teeth extracted Family History Maternal Grandmother Colon cancer Maternal Aunt Colon cancer Father Pancreatic adenoma Social History Housing: House Alcohol intake: current Comment: Socially typically. Pt typically has a few drinks/week. Patient Tobacco Use Status: Never used Tobacco e-Cigarette/Vaping Use: Never Used Substance Use Type: Marijuana service: No Current occupational status: employed Current occupational exposures/hazards: No Cognitive needs: No Hearing needs: No Vision needs: No Questionnaire PHQ-9 Over the last 2 weeks, how often have you been bothered by any of the following problems? 1. Little interest or pleasure in doing things: not at all 2. Feeling down, depressed, or hopeless: not at all 3. Trouble falling or staying asleep, or sleeping too much: not at all 4. Feeling tired or having little energy: nearly every day 5. Poor appetite or overeating: several days 6. Feeling bad about yourself - or that you are a failure or have let yourself or your family down: not at all 7. Trouble concentrating on things, such as reading the newspaper or watching television: not at all 8. Moving or speaking so slowly that other people could have noticed. Or the opposite - being so fidgety or restless that you have been moving around a lot more than usual: not at all 9. Thoughts that you would be better off or of hurting yourself in some way: not at all Total score: 4 Depression Screening Interpretation: Positive Depression Screening Done: Yes 37094 - PHQ-9 Billing: Yes Source: Developed by Drs. Dwayne Peres, Vilma Cantu, Alex Oneil and colleagues, with an educational avelino from [employer]. Thrive Questionnaire Date Thrive assessed: 09/07/24 I am a: Patient What is your living situation today?: I have a steady place to live Within the past 12 months, did the food you bought not last and you didn't have the money to get more?: Never true Within the past 12 months, did you worry whether your food would run out before you got money to buy more?: Never true Do you have trouble paying for medicines?: No Do you have trouble getting transportation to medical appointments?: No Do you have trouble paying your heating and electricity bill?: No Do you have trouble taking care of your child, family member or friend?: No Do you have trouble with day-to-day activities such as bathing, preparing meals, shopping, managing finances, etc.?: No Are you currently unemployed and looking for a job?: No Are you interested in more education?: No Please select the resources that you would like help with: Job search/training Currently or been in a relationship where the following occur: No concerns re ported THRIVE Score: 0 AUDIT C Alcohol Use Questionnaire (AUDIT-C) 1. How often do you have a drink containing alcohol?: Monthly or less 2. How many drinks containing alcohol do you have on a typical day when you are drinking?: 1 or 2 3. How often do you have six or more drinks on one occasion?: Less than monthly Total Score: 2 Score Reviewed/Action Taken: Yes ABDOUL-7 AMB Questionnaire ABDOUL-7 Date ABDOUL - 7 assessed: 09/07/24 Feeling nervous, anxious, or on edge: 1 = Several days Not being able to stop or control worryin = More than half the days Worrying too much about different things: 0 = Not at all Trouble relaxin = Not at all Being so restless that it is hard to sit still: 0 = Not at all Becoming easily annoyed or irritable: 1 = Several days Feeling afraid as if something awful might happen: 0 = Not at all Total ABDOUL-7 score (0-4 normal; 5-9 mild; 10-14 moderate; 15-21 severe): 4 Source: Developed by Drs. Dwayne Peres, Vilma Cantu, Alex Oneil and colleagues, with an educational avelino from [employer]. ABDOUL-7 Assessment Billing ABDOUL-7 Assessment Tool: ABDOUL-7 Assessment 58909 Review of Systems Const Details: Denies chills, Denies fatigue, Denies fever(s), Denies headache(s) and Denies weakness HEENT Denies change in vision, Denies dizziness, Denies headache(s), Denies hearing loss, Denies nasal congestion, Denies sinus pain, Denies sinus pressure and Denies sore throat Card Denies chest pain, Denies lightheadedness, Denies dyspnea and Denies other (palpitations) Resp Denies cough, Denies dyspnea and Denies wheezing GI Denies abdominal pain, Denies melena, Denies hematochezia, Denies change in bowel habits, Denies dyspepsia and Denies nausea Denies hematuria and Denies dysuria Musc Denies abnormal gait, Denies myalgias, Denies arthralgias, Denies numbness and Denies tingling Skin/Breast Denies rash, Denies unusual bruising and Denies wounds Neuro Denies abnormal gait, Denies dizziness, Denies headache(s), Denies memory loss, Denies numbness, Denies Sensory deficit (Neuro), Denies tingling and Denies weakness Psych Denies anxiety, Denies depression and Denies memory loss Endo Denies cold intolerance, Denies fatigue, Denies heat intolerance, Denies polydipsia and Denies polyuria Ahsan/Lymph Denies easy bleeding and Denies easy bruising Aller/Immun Denies wheezing Physical exam (Primary Care) Vital Signs: Last Vital Signs Pulse 73 09/07/24 12:50 BP 100/60 09/07/24 12:50 Pulse Ox 96 09/07/24 12:50 Oxygen Delivery Method Room Air 09/07/24 12:50 BMI result Body Mass Index 34.0 Tobacco/Smoking Status: Tobacco use Status Tobacco use date assessed 09/07/24 09/07/24 12:56 Patient Tobacco Use Status Never used Tobacco 09/07/24 12:56 e-Cigarette/Vaping Use Never Used 09/07/24 12:56 PHQ-9: PHQ-9 Score PHQ-9: Total score 4 09/07/24 13:05 Depression Screening Interpretation: Positive Thrive Assessment: Date of Thrive Assessment Date Thrive assessed 09/07/24 09/07/24 12:56 Currently or been in a relationship where the following occur: No concerns reported Const Other: General: no acute distress, well developed, alert and awake Nutritional Appearance: well nourished Orientation/consciousness: patient oriented x3 HENMT Head: Yes normocephalic and Yes atraumatic Ears: hearing grossly normal bilaterally and TM's normal bilaterally General nose exam: Normal external nose present and Normal nares present Mouth: Normal oral and palatal mucosa present and moist mucous membranes Teeth and gingiva: dentition normal Throat: Yes oropharynx normal Eyes Pupils: Equal, round and reactive pupils present and Pupil accommodation reflex normal EOM: EOMs intact bilaterally Neck Neck: Yes normal visual inspection, Yes no lymphadenopathy and Yes trachea midline Thyroid: Thyroid normal Carotids: no bruits Lymphatic: no lymphadenopathy noted Chest Chest palpation & inspection: normal inspection of the chest Resp Effort & Inspection: normal respiratory effort Auscultation: clear to auscultation bilaterally Cardio Rate: regular rate Rhythm: regular rhythm Heart sounds: S1 normal heart sound present, S2 normal heart sound present, no gallops, no murmurs and no rubs Bruits: no abdominal aortic bruits and no carotid bruits GI Palpation (GI): No Abdominal aortic bruit present, Soft to palpation, nontender, No hepatosplenomegaly present and No Rebound tenderness present Auscultation: normal bowel sounds General: Yes no CVA tenderness Back/Spine/Pelvis Back: no CVA tenderness Cervical Spine: cervical ROM normal and No Cervical spine tenderness Thoracic/Lumbar Spine: thoraco-lumbar ROM normal, No pain with thoraco-lumbar ROM, No thoracic spinal tenderness and No lumbar spinal tenderness Skin General: warm and dry. Normal skin color. Normal skin turgor Lesions: no lesions Rashes: no rashes Trauma: no lacerations or abrasions Wounds: no wounds Nails: normal Neuro General: patient oriented x3, gait normal and CN's II-XI intact bilaterally Cranial nerves: Yes Equal, round and reactive pupils present Cognition (Neuro): normal cognition Gait exam (Neuro): Normal gait present Motor exam (neuro): 5/5 motor strength present throughout Sensory Exam: No Sensory deficit (Neuro) Deep tendon reflexes (DTR's): Right patellar reflex intensity grade: 2+ and Left patellar reflex intensity grade: 2+ Extrem General: Yes normal to inspection, No edema and No calf tenderness Psych Appearance: grossly normal Affect: normal affect Attitude: cooperative Thought process: Normal thought process present Results Reviewed Results Reviewed: Laboratory Tests 09/04/24 10:57 Sodium 141 Potassium 4.5 Chloride 104 Carbon Dioxide 29 Anion Gap 13 BUN 15 Creatinine 0.95 Estimated GFR > 60 Fasting Glucose 109 H Calcium 9.6 Total Bilirubin 0.6 AST 39 H ALT 96 H Triglycerides 193 H Cholesterol 222 H LDL Cholesterol, Calc 145 H HDL Cholesterol 39 L 25-OH Vitamin D Total 37.7 TSH 1.14 Coding Level of Care Code Est Pt Level 4 (99565) Diagnoses Annual physical exam Z00.00 Chronic idiopathic constipation K59.04 Constipation type: chronic idiopathic constipation Low energy R53.83 High triglycerides E78.1 Elevated liver transaminase level R74.01 Vitamin D deficiency E55.9 Gastroesophageal reflux disease, unspecified whether esophagitis present K21.9 Esophagitis presence: esophagitis presence not specified Additional Codes ABDOUL-7 Assessment Billing - ABDOUL-7 Assessment Tool: ABDOUL-7 Assessment 53910 ([id number]) PHQ-9 - 40380 - PHQ-9 Billing: Yes ([id number]) Time Spent (min) 35 Assessment & Plan Assessment & Plan (1) Annual physical exam: Code(s): Z00.00 - Encounter for general adult medical examination without abnormal findings Category: Medical Plan: Patient presents in for annual physical. CMP and urine results reviewed with patient. The patient for CBC was not completed, will call the lab and find out. Patient has not seen a dentist in a while encouraged patient to make an appointment. Patient had an eye exam last year-reports that he is due and we will make an appointment. Patient declines flu vaccine reports that he had the 1st 2 COVID vaccines and 1 booster. Patient he is due for tetanus shots, will get this done on next appointment (2) Constipation: Code(s): K59.00 - Constipation, unspecified Category: Medical Qualifiers: Constipation type: chronic idiopathic constipation Qualified Code(s): K59.04 - Chronic idiopathic constipation Plan: Continue bisacodyl 10 mg at bedtime, methylcellulose fiber Increase fluids hydration Follow up with GI as scheduled (3) Low energy: Code(s): R53.83 - Other fatigue Category: Medical Plan: Reports some improvement since being on vitamin-D supplement testosterone level was ordered but was not completed-will check with lab for the reason (4) High triglycerides: Code(s): E78.1 - Pure hyperglyceridemia Category: Medical Plan: [id number] Reinforced a diet low in cholesterol/activity as tolerated Continue fenofibrate 160 mg daily and niacin 500 mg daily will recheck in 3 months (5) Elevated liver transaminase level: Code(s): R74.01 - Elevation of levels of liver transaminase levels Category: Medical Plan: AST and ALT elevated. Discussed with patient that this is most likely due to his high cholesterol and by decreasing his cholesterol should help these numbers as well (6) Vitamin D deficiency: Code(s): E55.9 - Vitamin D deficiency, unspecified Category: Medical Plan: Within normal limits on the most recent labs Continue cholecalciferol 100 mcg daily (7) GERD (gastroesophageal reflux disease): Code(s): K21.9 - Gastro-esophageal reflux disease without esophagitis Category: Medical Qualifiers: Esophagitis presence: esophagitis presence not specified Qualified Code(s): K21.9 - Gastro-esophageal reflux disease without esophagitis Plan: Patient denies heartburn, reports that he is feeling much better since starting medication Reinforced dietary restrictions Continue esomeprazole magnesium 40 mg daily Plan Patient to return in 3 months, labs ordered for the patient to complete prior to this appointment Orders: Orders Glucose Fasting 3 Months E78.1 - Pure hyperglyceridemia, E78.5 - Hyperlipidemia, unspecified, R53.83 - Other fatigue, R74.01 - Elevation of levels of liver transaminase levels Vitamin D 25-OH Total 3 Months E78.1 - Pure hyperglyceridemia, E78.5 - Hyperlipidemia, unspecified, R53.83 - Other fatigue, R74.01 - Elevation of levels of liver transaminase levels Complete Blood Count Auto Diff 3 Months E78.1 - Pure hyperglyceridemia, E78.5 - Hyperlipidemia, unspecified, R53.83 - Other fatigue, R74.01 - Elevation of levels of liver transaminase levels Comprehensive [place]. Panel Fast 3 Months E78.1 - Pure hyperglyceridemia, E78.5 - Hyperlipidemia, unspecified, R53.83 - Other fatigue, R74.01 - Elevation of levels of liver transaminase levels Lipid Panel 3 Months E78.1 - Pure hyperglyceridemia, E78.5 - Hyperlipidemia, unspecified, R53.83 - Other fatigue, R74.01 - Elevation of levels of liver transaminase levels TSH reflex Free T4 3 Months E78.1 - Pure hyperglyceridemia, E78.5 - Hyperlipidemia, unspecified, R53.83 - Other fatigue, R74.01 - Elevation of levels of liver transaminase levels
[2024-09-07 12:50] VITALS: BP 100/60; PULSE 73; O2SAT 96; BMI 34.0
--- OUTSIDE RECORDS SUMMARY | 2024-09-07 12:54 | XMS_ITS | Clinical Summary ---
Author Organization [facility] ity Address [address] [place] [address] Care Team Providers Care Frozen Foods Manager Name Role Phone Unavailable Primary Care Provider [...]
== END 2024-09-07 13:28 | disposition home or self-care (01) ==
DX: Z00.00 Encounter for general adult medical examination without abnormal findings (principal); K59.04 Chronic idiopathic constipation; R53.83 Other fatigue; E78.1 Pure hyperglyceridemia; R74.01 Elevation of levels of liver transaminase levels; E55.9 Vitamin D deficiency, unspecified; K21.9 Gastro-esophageal reflux disease without esophagitis

== ENCOUNTER → 2024-09-07 12:46 | Outpatient (BNVA) | payer OTHER, SELFPAY | DX: Z00.00 Encounter for general adult medical examination without abnormal findings (principal); K59.04 Chronic idiopathic constipation; R53.83 Other fatigue; E78.1 Pure hyperglyceridemia; R74.01 Elevation of levels of liver transaminase levels; E55.9 Vitamin D deficiency, unspecified; K21.9 Gastro-esophageal reflux disease without esophagitis; Z79.899 Other long term (current) drug therapy | CPT/HCPCS: 96127 ==

== ENCOUNTER 2024-09-18 09:34 | Outpatient (AMB) | payer OTHER, SELFPAY ==
--- NOTE | 2024-09-18 09:44 | MHC.OFFVIS ---
Vital Signs 09/18/24 09:45 Height 5 ft 7 in Weight 217 lb 13.067 oz BMI 34.1 BP 98/56 L Blood Pressure Location Lt brachial Position Sitting Pulse 62 Pulse Source Pulse Oximeter Pulse Oximetry (%) 97 Oxygen Delivery Method Room Air Intake Visit Reasons: 2 month follow up Intake Note: ESTABLISHED PATIENT for GERD + IBS mgmt. Labs done recently Chief Complaint; C/O constipation which was well controlled until the pt ran out of dulcolax and the pharmacy wouldn't provide any refills (no reason given by Pharmacy). Pt denies any other concerns but would like to find a way to get the dulcolax Rx back. Printer Machine Required: No Accompanied by: Self / Same As Patient Allergies amoxicillin Allergy (Intermediate, Verified 09/18/24 09:44) Rash Penicillins Allergy (Intermediate, Verified 09/18/24 09:44) Rash HPI HPI 2 month follow up: Details: LAST VISIT High triglycerides Gallbladder polyp Postprandial abdominal bloating Postprandial epigastric pain GERD (gastroesophageal reflux disease) Chronic idiopathic constipation IBS (irritable bowel syndrome) Plan Continue current management with Nexium. Continue avoiding dietary triggers and late night snacking. High triglycerides, patient will start taking fenofibrate, fish oil and niacin. Avoid alcohol and food high in fat. Increase fiber, fluid intake and activity to promote better bowel motility. Patient will return in 2-3 months to discuss going for colonoscopy and upper endoscopy. Message sent to surgical schedulers to book procedure for patient. We will discuss prep next visit. He is agreeable to current plan of care and verbalizes understanding of instructions. He was given the opportunity to ask questions and all questions answered. ? Thank you for allowing me to participate in his care Medications New cholecalciferol (vitamin D3) 100 mcg (2 x 50 mcg (2,000 unit)) PO DAILY 180 caps 3RF R79.89 bisacodyl (Dulcolax (bisacodyl)) take 4 tabs at noon the day before your colonoscopy 20 mg (4 x 5 mg) PO ONCE 1 day 4 tabs 0RF Z12.11 niacin 500 mg PO DAILY 90 tabs 2RF E78.1 polyethylene glycol 3350 (Miralax) As directed by gastroenterology department at [facility] 238 grams PO ONCE 238 grams 0RF Z12.11 fenofibrate 160 mg PO DAILY 90 tabs 2RF TODAY'S VISIT Patient is here today for follow-up and to discuss going for colonoscopy. Patient reports to be feeling much better after starting to take Dulcolax and being able to go to the bathroom. Pharmacy did not fill script for patient couple days ago and he feels like he is starting to back up again and having constipation. Acid reflux controlled for the most part with Nexium. Occasional acid reflux and epigastric discomfort postprandially. Upper endoscopy and colonoscopy scheduled for patient in October. Patient reports that he has prep at home. No trouble with anesthesia effect. No history of sleep apnea. Family history of CRC. Patient had no blood in the stool in the past month or so. [facility] Medical History (Updated 09/18/24 @ 10:07 by Silvina Ley, [facility]) Family history of colorectal cancer High triglycerides Surgical History Hx of blepharoplasty [place] teeth extracted Family History Maternal Grandmother Colon cancer Maternal Aunt Colon cancer Father Pancreatic adenoma Social History Housing: House Alcohol intake: current Comment: Socially typically. Pt typically has a few drinks/week. Patient Tobacco Use Status: Never used Tobacco e-Cigarette/Vaping Use: Never Used Substance Use Type: Marijuana service: No Current occupational status: employed Current occupational exposures/hazards: No Cognitive needs: No Hearing needs: No Vision needs: No Review of Systems Const Denies weight gain and Denies weight loss ENT Reports no additional complaints, Denies dysphagia and Denies odynophagia Card Reports no additional complaints Resp Reports no additional complaints GI Denies abdominal pain, Denies belching, Denies melena, Denies bloating, Denies change in bowel habits, Denies dysphagia, Denies excessive flatus, Denies dyspepsia, Denies heartburn, Denies diarrhea, Denies loose stools, Denies nausea, Denies odynophagia and Denies vomiting Reports no additional complaints Musc Reports no additional complaints Neuro Reports no additional complaints Psych Reports no additional complaints Endo Reports no additional complaints Physical Exam Vital Signs: Last Vital Signs Pulse 62 09/18/24 09:45 BP 98/56 L 09/18/24 09:45 Pulse Ox 97 09/18/24 09:45 Oxygen Delivery Method Room Air 09/18/24 09:45 BMI result Body Mass Index 34.1 Const General: healthy appearing, no acute distress and well developed Nutritional Appearance: well nourished Orientation/consciousness: patient oriented x3 Resp Effort & Inspection: normal respiratory effort, able to speak in complete sentences, no tracheal deviation and symmetric chest movement Auscultation: clear to auscultation bilaterally Cardio Rate: regular rate GI Other: Right upper and lumbar area small tenderness area with some bulging suspecting ventral hernia. Inspection: Yes normal to inspection and No distended Palpation (GI): Soft to palpation, not firm, Tenderness to palpation present (GI) and No hepatosplenomegaly present Auscultation: Hypoactive bowel sounds present General: Yes no CVA tenderness Back/Spine/Pelvis Back: no CVA tenderness Skin General skin exam: elasticity normal, turgor normal and dry skin Neuro General: patient oriented x3 Psych Appearance: grossly normal Mental Status: mental status grossly normal Assessment & Plan Assessment & Plan (1) Family history of colorectal cancer: Code(s): Z80.0 - Family history of malignant neoplasm of digestive organs Category: Medical (2) Postprandial abdominal bloating: Code(s): R14.0 - Abdominal distension (gaseous) (3) Postprandial epigastric pain: Code(s): R10.13 - Epigastric pain (4) GERD (gastroesophageal reflux disease): Code(s): K21.9 - Gastro-esophageal reflux disease without esophagitis Qualifiers: Esophagitis presence: esophagitis presence not specified Qualified Code(s): K21.9 - Gastro-esophageal reflux disease without esophagitis (5) Chronic idiopathic constipation: Code(s): K59.04 - Chronic idiopathic constipation (6) IBS (irritable bowel syndrome): Code(s): K58.9 - Irritable bowel syndrome, unspecified Qualifiers: Irritable bowel syndrome type: without diarrhea Qualified Code(s): K58.9 - Irritable bowel syndrome, unspecified (7) Encounter for diagnostic colonoscopy due to change in bowel habits: Code(s): R19.4 - Change in bowel habit Plan Continue Nexium. Patient reports feeling better on as omeprazole. Have endoscopy scheduled in October. Patient denies any issues with anesthesia in the past. No history of sleep apnea. Not on any anticoagulation medications. Continue taking Dulcolax daily. For for watched 2 expect before, during and after procedure discussed with patient. Stressed the importance of good bowel prep and clear liquid diet day before procedure. Patient has appointment for follow-up after the procedure. He is agreeable to the plan of care and verbalizes understanding of instructions she was given the opportunity to ask questions and all questions answered. Thank you for allowing me to participate in his care Medications: Refilled bisacodyl (Dulcolax (bisacodyl)) 10 mg (2 x 5 mg) PO BEDTIME 180 tabs 4RF Coding Level of Care Code Est Pt Level 4 (98140) Complex EM visit Add On G2211 Diagnoses Family history of colorectal cancer Z80.0 Postprandial abdominal bloating R14.0 Postprandial epigastric pain R10.13 Gastroesophageal reflux disease, unspecified whether esophagitis present K21.9 Esophagitis presence: esophagitis presence not specified Chronic idiopathic constipation K59.04 Irritable bowel syndrome without diarrhea K58.9 Irritable bowel syndrome type: without diarrhea Encounter for diagnostic colonoscopy due to change in bowel habits R19.4 Time Spent (min) 35 Comment 20 minutes spent with the patient an additional 15 minutes spent reviewing his records
[2024-09-18 09:45] VITALS: BP 98/56; PULSE 62; O2SAT 97; BMI 34.1
--- OUTSIDE RECORDS SUMMARY | 2024-09-18 10:23 | XMS_ITS | Clinical Summary ---
Author Organization [facility] ity Address [address] [place] [address] Care Team Providers Care Breakfast Manager Name Role Phone Unavailable Primary Care [...]
== END 2024-09-18 10:55 | disposition home or self-care (01) ==
PROVIDERS: PCP Internal Medicine; Visit Provider Nurse Practitioner Family
DX: K58.1 Irritable bowel syndrome with constipation (principal); K21.9 Gastro-esophageal reflux disease without esophagitis; R19.4 Change in bowel habit; Z80.0 Family history of malignant neoplasm of digestive organs; R14.0 Abdominal distension (gaseous)
CPT/HCPCS: 99214; G2211

== ENCOUNTER → 2024-09-18 09:34 | Outpatient (BNVA) | payer OTHER, SELFPAY | PROVIDERS: PCP Internal Medicine; Visit Provider Nurse Practitioner Family ==

== ENCOUNTER 2024-11-06 09:04 | Day surgery (SDC) | payer OTHER, SELFPAY ==
--- OUTSIDE RECORDS SUMMARY | 2024-09-21 07:37 | XMS_ITS | Clinical Summary ---
Author Organization [facility] ity Address [address] [place] [address] Care Team Providers Care Journeyman Electrician Pv Installer Name Role Phone Unavailable Primary Care Provider [...]
[2024-11-02 12:49] VITALS: BMI 34.0
--- NOTE | 2024-11-06 08:33 | MHC.SHP ---
Pre-Procedural Eval Section A - 24 Hr Update-Section A only Date of Service: 11/06/24 The patient is an INPATIENT: No The patient has been examined within 24 hours of the surgical procedure. The History & Physical has been completed within 30 days and I have reviewed it.: No Section B - Complete if H&P > 30 days Chief Complaint: screening, GERD Relevant Family History (Specify if Yes): Yes Relevant Social History: None Present Medications: see Short Stay Collaborative assessment Medical History: Significant History (Family history of colorectal cancer High triglycerides) History of Previous Operations: Relevant previous surgery/procedure and date(s) (Hx of blepharoplasty [place] teeth extracted) Allergies: Allergies Allergy/AdvReac Type Severity Reaction Status Date / Time amoxicillin Allergy Intermediate Rash Verified 09/18/24 09:44 Penicillins Allergy Intermediate Rash Verified 09/18/24 09:44 Review of Systems Sugical H&P ROS: Negative: Constitution, Cardiovascular, Respiratory and Gastrointestinal Exam Surgical H&P Exam: Normal: Heart, Normal: Lungs, Normal: Extremities and Normal: Abdomen Plan Diagnosis/Plan: Unchanged I have reviewed the history and physical and performed a pertinent physical examination on my patient. No changes have occurred unless specified. Time Spent With Patient Time: Total time managing care of this patient today ____ minutes.
[2024-11-06 09:22] VITALS: BMI 33.2
[2024-11-06 09:24] VITALS: BP 115/62; PULSE 62; RESP 12; TEMP 36.6; O2SAT 97
--- NOTE | 2024-11-06 09:35 | P.CONAN_ITS ---
[facility] Active Problems Active Problems: All Active Problems GERD (gastroesophageal reflux disease) (Acute) Vitamin D deficiency (Acute) Elevated liver transaminase level (Acute) HLD (hyperlipidemia) (Acute) Constipation (Acute) Low energy (Acute) Annual physical exam (Acute) Gallbladder polyp (Acute) Right flank pain (Acute) Family history of colorectal cancer (Acute) High triglycerides (Acute) Past Medical History Medical History HLD (hyperlipidemia) GERD (gastroesophageal reflux disease) Family history of colorectal cancer High triglycerides Family History Family History Maternal Grandmother Colon cancer Maternal Aunt Colon cancer Father Pancreatic adenoma Surgical History Surgical History Hx of blepharoplasty [place] teeth extracted History of Problems with Anesthesia: No Social History Social History Housing: House Alcohol intake: current Alcohol intake frequency: holidays/special occasions only Comment: Socially typically. Pt typically has a few drinks/week. Patient Tobacco Use Status: Never used Tobacco e-Cigarette/Vaping Use: Never Used Use of substances other than those prescribed or required for medical reasons: Yes Substance Use Type: Marijuana Substance Use Type Other:: last used last week Are you DNR?: No Advance Directives: No Advance Directives Information Provided: Yes service: No Current occupational status: employed Current occupational exposures/hazards: No Cognitive needs: No Hearing needs: No Vision needs: No Meds Allergies Allergy/AdvReac Type Severity Reaction Status Date / Time amoxicillin Allergy Intermediate Rash Verified 11/06/24 09:10 Penicillins Allergy Intermediate Rash Verified 11/06/24 09:10 Active Medications: Current Medications Lactated Ringer's (Lr) 1,000 mls @ 50 mls/hr IVCONT .Q20H SANDY Home Medications ?Medication ?Instructions ?Recorded ?Confirmed ?Last Taken ?Type methylcellulose (laxative) 500 mg PO 05/05/24 09/07/24 Unknown History tablet (Fiber Therapy (methylcellulose)) Exam Height,Weight and Vital Signs: Height 5 ft 7 in Weight 96.162 kg Last Vital Signs Temp 97.9 F 11/06/24 09:24 Pulse 62 11/06/24 09:24 Resp 12 11/06/24 09:24 BP 115/62 11/06/24 09:24 Pulse Ox 97 11/06/24 09:24 O2 Del Method Room Air 11/06/24 09:24 Airway Mallampati Class: III TM Dist: >3cm Neck ROM: Full Loose/Missing/Broken Teeth: No Heart: RRR Lungs: CTA Assessment and Plan Assessment Anesthesia Assessment: Anesthesia Plan Discussed and Chart Reviewed Final Anesthetic Review History of Problems with Anesthesia: No NPO: Yes ASA Class: III Final Preanesthetic Review: Meds/Allgs Chart Reviewed, Consent Obtained/Reviewed and Anes Risks/Benef Reviewed Patient Risk: Intermediate Procedure Risk: Low Anesthetic Plan Anesthetic Plan: MAC: Disposition: Standard PACU
[2024-11-06] MEDS: Lactated Ringers 1,000 ML 50 ML IVCONT (09:46)
--- NOTE | 2024-11-06 10:42 | HO.OPN-COLON ---
Colonoscopy Operative Note Operative Note Date of Service: 11/06/24 Narrative: FLEXIBLE TRANSORAL UPPER GASTROINTESTINAL ENDOSCOPY WITH BIOPSIES AND COLONOSCOPY TILL CECUM WITH SNARE POLYPECTOMY, SUBMUCOSAL INJECTION AND HEMOCLIP PLACEMENT Pre-op diagnosis: Colon cancer screening, GERD Post-op diagnosis: GERD, Gastritis, Gastric polyps, Colon Polyps, Diverticulosis, hemorrhoids Endoscopist:? Kelechi Celis MD Anesthesia:?MAC UPPER ENDOSCOPY Consent: Indications for the procedure and potential complications of bleeding, perforation, reaction to medications and missed diagnosis were discussed with the patient and informed consent was obtained. Instrument: Olympus GIF H 190 mid size upper endoscope Monitoring: Vital signs and clinical assessment, continuous EKG monitoring, Pulse oximetry, Carbon Dioxide monitoring and blood pressure monitoring were done throughout the procedure. Procedure: The patient was placed in the left lateral decubitis position and pre-procedure medications were administered and a bite block was placed. The endoscope was inserted into the mouth and advanced under direct vision to the third part of duodenum. A careful inspection was made as the upper endoscope was withdrawn including a retroflexed examination of the proximal stomach; Findings and interventions are described below. Findings: Larynx: Normal Esophagus: GE junction at 40 cms. A 1 cms tongue of possible Claudio's - biopsied. A 1.5 to 2 cms area of salmon pink mucosa in the upper esophagus from 16 to 18 cms - biopsies were obtained. No esophagitis. Stomach: Two 2-3 mm benign appearing polyps in the gastric body and fundus - 1 polyp was removed with a cold biopsy.. Moderate diffuse gastric erythema - biopsies were obtained from the gastric body and antrum. Grade 2 flap valve on retroflexed examination of the cardia. Duodenum: Normal bulb and descending duodenum Intervention: Biopsies as noted above COLONOSCOPY PROCEDURE NOTE Instrument: Olympus CF H 190 L variable stiffness adult colonoscope Monitoring: Vital signs and clinical assessment, intermittent blood pressure monitoring, continuous EKG monitoring, Pulse oximetry and Carbon Dioxide monitoring were done throughout the procedure. Please see anesthesia flowsheet. Colon withdrawl time was 19 minutes. Procedure: The patient was placed in the left lateral decubitis position and pre-procedure medications were administered. After a digital rectal examination of the ano-rectum, the video colonoscope was inserted into the rectum and advanced through the colon to the cecum. The colonoscope was slowly withdrawn in a retrograde panoramic fashion and the colon mucosa was carefully examined including a retroflexed view of the rectum. Findings and interventions are described below. Procedure Difficulty: without difficulty Findings: Terminal Ileum: Not evaluated Cecum: Normal Ascending Colon: Normal Transverse Colon: A 2 to 2.5 cms sessile polyp in the distal TC at 70 cms - removed with a hot snare. Polypectomy site was closed with 1 hemoclip and marked with yajaira ink Descending Colon: Normal Sigmoid Colon: Moderate diverticulosis Rectum: Normal Ano-rectum: Moderate internal hemorrhoids Colon preparation: Excellent, after some irrigation. [place] Bowel Preparation Scale Right colon; 3 Transverse colon: 3 Left colon; 3 (0 = Unprepared colon segment with mucosa not seen due to solid stool that cannot be cleared. 1 = Portion of mucosa of the colon segment seen, but other areas of the colon segment not well seen due to staining, residual stool and/or opaque liquid. 2 = Minor amount of residual staining, small fragments of stool and/or opaque liquid, but mucosa of colon segment seen well. 3 = Entire mucosa of colon segment seen well with no residual staining, small fragments of stool or opaque liquid) Impression and Post Procedure Diagnosis: Endoscopy Findings: ESOPHAGUS: A 1 cms tongue of possible Claudio's and 1.5 to 2 cms inlet patch STOMACH: Diffuse gastritis and benign-appearing gastric polyps DUODENUM: Normal - biopsies were obtained to rule out celiac sprue Colonoscopy Findings: One medium sized polyp was removed Moderate diverticulosis seen in the sigmoid colon small hemorrhoids on retroflexed exam. Plan: Pt has a FU appointment on 11/20/24 with Lamar Ley NP Repeat Colonoscopy in 3 years if polyps are adenomatous and 10 year if polyps are hyperplastic. Repeat colon in 6 to 12 months if polyp shows advanced histology A summary of above findings and relevant handouts were given to the patient. BIOPSIES SHOWED: A. Gastric antrum, biopsy: Gastric antral mucosa with reactive changes and minimal chronic inactive gastritis; negative for H. pylori, intestinal metaplasia and dysplasia. B. Gastric polyp: Fundic gland polyp with minimal chronic inactive inflammation; negative for H. pylori, intestinal metaplasia and dysplasia. C. Gastric body, biopsy: Gastric body mucosa with congestion and minimal chronic inactive gastritis; negative for H. pylori, intestinal metaplasia and dysplasia. D. Esophagogastric junction, biopsy: Columnar/gastric-type mucosa with minimal chronic inactive inflammation; negative for intestinal metaplasia and dysplasia; no squamous mucosa present. E. Esophagus, upper, biopsy: Squamocolumnar mucosa with mild chronic inflammation; negative for intestinal metaplasia and dysplasia (endoscopic correlation necessary). F. Colon, transverse, polyp: Tubular adenoma; negative for high-grade dysplasia and carcinoma Letter sent to the patient with biopsy results advising repeat colonoscopy in 3 years. Patient was placed on the colonoscopy recall list.
[2024-11-06 11:29] VITALS: BP 108/61; PULSE 95; RESP 18; TEMP 36.3; O2SAT 98
[2024-11-06 11:44] VITALS: BP 126/51; PULSE 89; RESP 16; TEMP 36.3; O2SAT 96
== END 2024-11-06 12:50 | disposition home or self-care (01) ==
PROVIDERS: Visit Provider Internal Medicine Gastroenterology
PROC: (CPT 45385; principal; 2024-11-06 10:20)
DX: Z12.11 Encounter for screening for malignant neoplasm of colon (principal); D12.3 Benign neoplasm of transverse colon; K57.30 Diverticulosis of large intestine without perforation or abscess without bleeding; K64.8 Other hemorrhoids; Z80.0 Family history of malignant neoplasm of digestive organs; K31.7 Polyp of stomach and duodenum; K29.60 Other gastritis without bleeding; K21.9 Gastro-esophageal reflux disease without esophagitis; E78.5 Hyperlipidemia, unspecified; E55.9 Vitamin D deficiency, unspecified; F12.90 Cannabis use, unspecified, uncomplicated; Z79.899 Other long term (current) drug therapy
CPT/HCPCS: 45385; 45381; 43239; 88305; 88313; 88342; J2003; J2250; J2704

== ENCOUNTER → 2024-11-06 09:04 | Outpatient (BNV) | payer OTHER, SELFPAY | PROVIDERS: Visit Provider Internal Medicine Gastroenterology | DX: Z12.11 Encounter for screening for malignant neoplasm of colon (principal); D12.3 Benign neoplasm of transverse colon; K57.30 Diverticulosis of large intestine without perforation or abscess without bleeding; K64.8 Other hemorrhoids; K21.9 Gastro-esophageal reflux disease without esophagitis; K31.7 Polyp of stomach and duodenum | CPT/HCPCS: 43239; 45381; 45385 ==

== ENCOUNTER 2024-11-20 14:23 | Outpatient (AMB) | payer OTHER, SELFPAY ==
[2024-11-20 14:28] VITALS: BP 116/66; PULSE 100; O2SAT 96; BMI 32.9
--- NOTE | 2024-11-20 14:28 | A.OFFVIS_ITS ---
Vital Signs 11/20/24 14:28 Height 5 ft 7 in Weight 210 lb BMI 32.9 BP 116/66 Blood Pressure Location Lt brachial Position Sitting Pulse 100 Pulse Source Pulse Oximeter Pulse Oximetry (%) 96 Oxygen Delivery Method Room Air Intake Visit Reasons: s/p egd colo Vimal Intake Note: ESTABLISHED PATIENT for GERD + IBS mgmt. S.P. EGD + COLO w/ RM. Chief Complaint; Pt reports that his constipation has completely resolved since having his procedure. Pt still taking fiber and nexium but no longer taking bisacodyl. Pt reports he hasn't pooped like this since he was 15 . Pneumatic Tube Operator Required: No Accompanied by: Self / Same As Patient Allergies amoxicillin Allergy (Intermediate, Verified 11/20/24 14:31) Rash Penicillins Allergy (Intermediate, Verified 11/20/24 14:31) Rash HPI HPI s/p egd colo Vimal: Details: LAST VISIT: Family history of colorectal cancer Postprandial abdominal bloating Postprandial epigastric pain GERD (gastroesophageal reflux disease) Chronic idiopathic constipation IBS (irritable bowel syndrome) Encounter for diagnostic colonoscopy due to change in bowel habits Plan Continue Nexium. Patient reports feeling better on as omeprazole. Have endoscopy scheduled in October. Patient denies any issues with anesthesia in the past. No history of sleep apnea. Not on any anticoagulation medications. Continue taking Dulcolax daily. For for watched 2 expect before, during and after procedure discussed with patient. Stressed the importance of good bowel prep and clear liquid diet day before procedure. Patient has appointment for follow-up after the procedure. He is agreeable to the plan of care and verbalizes understanding of instructions she was given the opportunity to ask questions and all questions answered. ? Thank you for allowing me to participate in his care Medications Refilled bisacodyl (Dulcolax (bisacodyl)) 10 mg (2 x 5 mg) PO BEDTIME 180 tabs 4RF UPPER ENDOSCOPY AND COLONOSCOPY: Findings: Larynx: Normal Esophagus: GE junction at 40 cms. A 1 cms tongue of possible Claudio's - biopsied. A 1.5 to 2 cms area of salmon pink mucosa in the upper esophagus from 16 to 18 cms - biopsies were obtained. No esophagitis. Stomach: Two 2-3 mm benign appearing polyps in the gastric body and fundus - 1 polyp was removed with a cold biopsy.. Moderate diffuse gastric erythema - biopsies were obtained from the gastric body and antrum. Grade 2 flap valve on retroflexed examination of the cardia. Duodenum: Normal bulb and descending duodenum Intervention: Biopsies as noted above COLONOSCOPY PROCEDURE NOTE Instrument: Olympus CF H 190 L variable stiffness adult colonoscope Monitoring: Vital signs and clinical assessment, intermittent blood pressure monitoring, continuous EKG monitoring, Pulse oximetry and Carbon Dioxide monitoring were done throughout the procedure. Please see anesthesia flowsheet. Colon withdrawl time was 19 minutes. Procedure: The patient was placed in the left lateral decubitis position and pre-procedure medications were administered. After a digital rectal examination of the ano-rectum, the video colonoscope was inserted into the rectum and advanced through the colon to the cecum. The colonoscope was slowly withdrawn in a retrograde panoramic fashion and the colon mucosa was carefully examined including a retroflexed view of the rectum. Findings and interventions are described below. Procedure Difficulty: without difficulty Findings: Terminal Ileum: Not evaluated Cecum: Normal Ascending Colon: Normal Transverse Colon: A 2 to 2.5 cms sessile polyp in the distal TC at 70 cms - removed with a hot snare. Polypectomy site was closed with 1 hemoclip and marked with yajaira ink Descending Colon: Normal Sigmoid Colon: Moderate diverticulosis Rectum: Normal Ano-rectum: Moderate internal hemorrhoids Colon preparation: Excellent, after some irrigation. [place] Bowel Preparation Scale Right colon; 3 Transverse colon: 3 Left colon; 3 (0 = Unprepared colon segment with mucosa not seen due to solid stool that cannot be cleared. 1 = Portion of mucosa of the colon segment seen, but other areas of the colon segment not well seen due to staining, residual stool and/or opaque liquid. 2 = Minor amount of residual staining, small fragments of stool and/or opaque liquid, but mucosa of colon segment seen well. 3 = Entire mucosa of colon segment seen well with no residual staining, small fragments of stool or opaque liquid) Impression and Post Procedure Diagnosis: Endoscopy Findings: ESOPHAGUS: A 1 cms tongue of possible Claudio's and 1.5 to 2 cms inlet patch STOMACH: Diffuse gastritis and benign-appearing gastric polyps DUODENUM: Normal - biopsies were obtained to rule out celiac sprue Colonoscopy Findings: One medium sized polyp was removed Moderate diverticulosis seen in the sigmoid colon small hemorrhoids on retroflexed exam. Plan: Repeat Colonoscopy in 3 years if polyps are adenomatous and 10 year if polyps are hyperplastic. Repeat colon in 6 to 12 months if polyp shows advanced histology A summary of above findings and relevant handouts were given to the patient. BIOPSIES SHOWED: A. Gastric antrum, biopsy: Gastric antral mucosa with reactive changes and minimal chronic inactive gastritis; negative for H. pylori, intestinal metaplasia and dysplasia. B. Gastric polyp: Fundic gland polyp with minimal chronic inactive inflammation; negative for H. pylori, intestinal metaplasia and dysplasia. C. Gastric body, biopsy: Gastric body mucosa with congestion and minimal chronic inactive gastritis; negative for H. pylori, intestinal metaplasia and dysplasia. D. Esophagogastric junction, biopsy: Columnar/gastric-type mucosa with minimal chronic inactive inflammation; negative for intestinal metaplasia and dysplasia; no squamous mucosa present. E. Esophagus, upper, biopsy: Squamocolumnar mucosa with mild chronic inflammation; negative for intestinal metaplasia and dysplasia (endoscopic correlation necessary). F. Colon, transverse, polyp: Tubular adenoma; negative for high-grade dysplasia and carcinoma Letter sent to the patient with biopsy results advising repeat colonoscopy in 3 years. Patient was placed on the colonoscopy recall list. TODAY'S VISIT: Patient is here today for follow-up and discussed upper endoscopy and colonoscopy results. Patient denies any ill effects from the prep, anesthesia or procedure itself. Patient reports that his symptoms of acid reflux are suppressed with Nexium. Patient denies any dyspepsia, dysphagia or odynophagia. Upper endoscopy and colonoscopy results as well as biopsy results discussed with patient. One tubular adenoma found. Due to size patient was recommended to return in 3 years. Patient denies any melena, hematochezia. Reports that after colonoscopy he started moving his bowels well without any issues. No longer needs to use Dulcolax to help him move his bowels. Patient denies any GI concerning symptoms today. [facility] Medical History (Updated 11/20/24 @ 20:11 by ELMER Garcia-PHIL) Tubular adenoma of colon HLD (hyperlipidemia) GERD (gastroesophageal reflux disease) Family history of colorectal cancer High triglycerides Surgical History Hx of blepharoplasty [place] teeth extracted Family History Maternal Grandmother Colon cancer Maternal Aunt Colon cancer Father Pancreatic adenoma Social History Housing: House Alcohol intake: current Alcohol intake frequency: holidays/special occasions only Comment: Socially typically. Pt typically has a few drinks/week. Patient Tobacco Use Status: Never used Tobacco e-Cigarette/Vaping Use: Never Used Substance Use Type: Marijuana service: No Current occupational status: employed Current occupational exposures/hazards: No Cognitive needs: No Hearing needs: No Vision needs: No Review of Systems Const Denies weight gain and Denies weight loss ENT Reports no additional complaints, Denies dysphagia and Denies odynophagia Card Reports no additional complaints Resp Reports no additional complaints GI Denies abdominal pain, Denies belching, Denies melena, Denies bloating, Denies change in bowel habits, Denies dysphagia, Denies excessive flatus, Denies dyspepsia, Denies heartburn, Denies diarrhea, Denies loose stools, Denies nausea, Denies odynophagia and Denies vomiting Reports no additional complaints Musc Reports no additional complaints Neuro Reports no additional complaints Psych Reports no additional complaints Endo Reports no additional complaints Physical Exam Vital Signs: Last Vital Signs Pulse 100 11/20/24 14:28 BP 116/66 11/20/24 14:28 Pulse Ox 96 11/20/24 14:28 Oxygen Delivery Method Room Air 11/20/24 14:28 BMI result Body Mass Index 32.9 Const General: healthy appearing, no acute distress and well developed Nutritional Appearance: well nourished Orientation/consciousness: patient oriented x3 Resp Effort & Inspection: normal respiratory effort, able to speak in complete sentences, no tracheal deviation and symmetric chest movement Auscultation: clear to auscultation bilaterally Cardio Rate: regular rate GI Other: Right upper and lumbar area small tenderness area with some bulging suspecting ventral hernia. Inspection: Yes normal to inspection and No distended Palpation (GI): Soft to palpation, not firm, Tenderness to palpation present (GI) and No hepatosplenomegaly present Auscultation: Hypoactive bowel sounds present General: Yes no CVA tenderness Back/Spine/Pelvis Back: no CVA tenderness Skin General skin exam: elasticity normal, turgor normal and dry skin Neuro General: patient oriented x3 Psych Appearance: grossly normal Mental Status: mental status grossly normal Assessment & Plan Assessment & Plan (1) GERD (gastroesophageal reflux disease): Code(s): K21.9 - Gastro-esophageal reflux disease without esophagitis Category: Medical Qualifiers: Esophagitis presence: esophagitis presence not specified Qualified Code(s): K21.9 - Gastro-esophageal reflux disease without esophagitis (2) Family history of colorectal cancer: Code(s): Z80.0 - Family history of malignant neoplasm of digestive organs Category: Medical (3) Tubular adenoma of colon: Code(s): D12.6 - Benign neoplasm of colon, unspecified Category: Medical (4) Postprandial abdominal bloating: Code(s): R14.0 - Abdominal distension (gaseous) (5) GERD (gastroesophageal reflux disease): Code(s): K21.9 - Gastro-esophageal reflux disease without esophagitis Qualifiers: Esophagitis presence: without esophagitis Qualified Code(s): K21.9 - Gastro-esophageal reflux disease without esophagitis (6) Chronic idiopathic constipation: Code(s): K59.04 - Chronic idiopathic constipation Plan Patient will continue Nexium daily. Avoid dietary triggers like dissected and staying upright for minimum 3 hours after meals discussed with patient. Currently patient has no constipation. However he can use Dulcolax as needed. Increase fluid intake and activity to promote better bowel motility. Follow-up in the office in 6 months, sooner on as needed basis. Colonoscopy in 3 years, sooner if clinically necessary. Patient is agreeable to current plan of care verbalizes understanding of instructions. He was given the opportunity to ask questions and all questions answered. Thank you for allowing me to participate in his care Coding Level of Care Code Est Pt Level 3 (94940) Diagnoses Gastroesophageal reflux disease, unspecified whether esophagitis present K21.9 Esophagitis presence: esophagitis presence not specified Family history of colorectal cancer Z80.0 Tubular adenoma of colon D12.6 Postprandial abdominal bloating R14.0 Chronic idiopathic constipation K59.04 Time Spent (min) 30 Comment 20 minutes spent with patient and additional 10 minutes spent reviewing his records
--- OUTSIDE RECORDS SUMMARY | 2024-11-20 17:12 | XMS_ITS | Clinical Summary ---
Author Organization [facility] ity Address [address] [place] [address] Care Team Providers Care Booking Agent Name Role Phone Unavailable Primary Care Provider [...] - 19+ 3-dose series) 1999 COVID-19 Vaccine ( - 2023-2 5 season) 2024 Cholesterol Screening (Lipid Panel) 05/04/2024 Depression Screening 05/04/2024 HIV Screening 05/04/2024 Hepatitis C Screening 05/04/2024 Social Influencers of Health Screening 05/04/2024 Influenza Vaccine (Season Ended) 2025 HIB Vaccines Aged Out No longer eligi [...] age to complete this topic Meningococcal B Vaccine Aged Out No l onger eligible based on patient's age to complete [...]
== END 2024-11-20 14:45 | disposition home or self-care (01) ==
LOC: HO.HGI 14:24
PROVIDERS: Visit Provider Nurse Practitioner Family
DX: K21.9 Gastro-esophageal reflux disease without esophagitis (principal); Z80.0 Family history of malignant neoplasm of digestive organs; D12.6 Benign neoplasm of colon, unspecified; R14.0 Abdominal distension (gaseous); K59.04 Chronic idiopathic constipation
CPT/HCPCS: 99213

== ENCOUNTER 2024-12-01 10:57 | Outpatient (REF) | payer OTHER, SELFPAY ==
[2024-12-01 11:19] LABS: MANUAL DIFF FLAG NO
--- OUTSIDE RECORDS SUMMARY | 2024-12-01 11:29 | XMS_ITS | Clinical Summary ---
Author Organization [facility] ity Address [address] [place] [address] Care Team Providers Care Furnace Fitter Name Role Phone Unavailable Primary Care Provider [...]
[2024-12-01 11:38] LABS: Basophils Percent Auto 0.5 % (0-2); Eosinophils Absolute Auto 0.1 X10*3/uL (0.0-0.4); Eosinophils Percent Auto 1.4 % (0-4); Hematocrit 40.6 % (42.0-52.0); Hemoglobin 14.3 g/dl (14.0-18.0); Imm Gran Abs Auto 0.02 X10*3/uL (0.00-0.03); Imm Gran Pct Auto 0.5 % (0.0-0.4); Lymphocytes Absolute Auto 1.7 X10*3/uL (1.2-4.9); Lymphocytes Percent Auto 39.8 % (20-40); Mean Corpuscular HGB Conc 35.2 g/dl (31.0-36.0); Mean Corpuscular Hemoglobin 30.2 pg (27.0-33.0); Mean Corpuscular Volume 85.7 fL (80.0-98.0); Mean Platelet Volume 9.4 fL (9.4-12.4); Monocytes Absolute Auto 0.3 X10*3/uL (0.1-1.2); Monocytes Percent Auto 7.3 % (2-11); Neutrophils Absolute Auto 2.2 x10*3/uL (2.0-8.3); Neutrophils Percent Auto 50.5 % (45-73); Platelet Count 208 X10*3/uL (160-400); Red Blood Count 4.74 X10*6/uL (4.60-5.80); Red Cell Distribution Width 12.5 % (11.0-16.0); White Blood Count 4.3 X10*3/uL (4.8-10.8)
[2024-12-01 12:12] LABS: Alkaline Phosphatase 54 U/L (39-117); Anion Gap 9 (12-20); Aspartate Amino Transferase 33 U/L (5-37); Bilirubin Total 0.7 mg/dL (0.0-1.0); Blood Urea Nitrogen 13 mg/dL (9-16); Calcium 9.1 mg/dL (8.4-10.2); Carbon Dioxide 28 mmol/L (22-29); Chloride 104 mmol/L (96-108); Cholesterol 236 mg/dL (<200); Estimated Glomerular Filt Rate > 60; Glucose Fasting 114 mg/dL (60-99); HDL Cholesterol 37 mg/dL (>40); LDL Cholesterol Calculated 158 mg/dL (<100); Potassium 4.2 mmol/L (3.3-5.1); Sodium 137 mmol/L (135-145); Total Protein 6.3 g/dL (6.5-8.0); Triglycerides 205 mg/dL (<150)
[2024-12-01 12:16] LABS: Alanine Aminotransferase 54 U/L (0-40)
[2024-12-01 12:26] LABS: Vitamin D 25-OH Total 28.7 ng/mL (>30)
[2024-12-08 01:14] LABS: Testosterone, Free 88.8 pg/mL (35.0-155.0); Testosterone, Total 496 ng/dL (250-1100)
== END 2024-12-01 10:58 | disposition home or self-care (01) ==
LOC: HO.LAB 10:57
DX: Z00.00 Encounter for general adult medical examination without abnormal findings (principal); E78.1 Pure hyperglyceridemia; E78.5 Hyperlipidemia, unspecified; R74.01 Elevation of levels of liver transaminase levels; R53.83 Other fatigue
CPT/HCPCS: 36415; 80053; 80061; 82306; 84402; 84403; 84443; 85025

== ENCOUNTER 2024-12-04 09:00 | Outpatient (REF) | payer OTHER, SELFPAY ==
--- NOTE | ~2024-12-04 | US_ITS ---
EXAMINATION: US ABDOMEN LIMITED HISTORY: K82.4 - Cholesterolosis of gallbladder TECHNIQUE: Real-time grayscale ultrasound imaging of the right upper quadrant was performed and images were reviewed. COMPARISON: Comparison is made with the prior examination dated 05/22/2024. FINDINGS: Liver: The right lobe of the liver measures 17.3 cm in size. The left lobe of the liver measures 12.1 cm in size. The liver demonstrates increased echotexture, consistent with steatosis. No focal mass or intrahepatic biliary ductal dilatation is identified. There is normal hepatopedal flow in the portal vein. Gallbladder and biliary tree: There is a 4 mm gallbladder polyp. The gallbladder is otherwise unremarkable, without evidence of calculi, wall thickening, or pericholecystic fluid. There is no sonographic Rose sign. The common bile duct is normal in caliber measuring 5 mm. Right Kidney: The right kidney measures 11.8 cm in length. The right kidney is unremarkable, without evidence of masses, hydronephrosis, or calculi. Pancreas: Pancreas is obscured by bowel gas. There is no free fluid in the right upper quadrant. US/US abdomen limited IMPRESSION: 1. Hepatomegaly and hepatic steatosis. 2. Stable 4 mm gallbladder polyp Electronically signed by: Dwayne Dixon MD 12/04/2024 10:26 AM EDT
--- OUTSIDE RECORDS SUMMARY | 2024-12-04 09:07 | XMS_ITS | Clinical Summary ---
Author Organization [facility] ity Address [address] [place] [address] Care Team Providers Care Police Captain Precinct Name Role Phone Unavailable Primary Care Provider [...]
== END 2024-12-04 09:01 | disposition home or self-care (01) ==
LOC: HO.US 09:00
PROVIDERS: Visit Provider Surgery
DX: K82.4 Cholesterolosis of gallbladder (principal)
CPT/HCPCS: 76705

== ENCOUNTER → 2024-12-04 09:03 | Outpatient (BNV) | payer OTHER, SELFPAY | PROVIDERS: Visit Provider Radiology Diagnostic Radiology | DX: K82.8 Other specified diseases of gallbladder (principal); K76.0 Fatty (change of) liver, not elsewhere classified; R16.0 Hepatomegaly, not elsewhere classified | CPT/HCPCS: 76705 ==

== ENCOUNTER 2024-12-05 12:52 | Outpatient (AMB) | payer OTHER, SELFPAY ==
--- NOTE | 2024-12-05 12:56 | MHC.PC.OV ---
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 Accompanied by: Self / Same As Patient Allergies amoxicillin Allergy (Intermediate, Verified 12/05/24 13:11) Rash Penicillins Allergy (Intermediate, Verified 12/05/24 13:11) Rash Medication List - Last Reconciled 12/05/24 by FERNANDO Chávez cholecalciferol (vitamin D3) 100 mcg (2 x 50 mcg (2,000 unit)) PO DAILY esomeprazole magnesium 40 mg PO DAILY fenofibrate 160 mg PO DAILY niacin 500 mg PO DAILY wheat dextrin (Benefiber Sugar Free (dextrin)) 1.5 grams PO BID Tobacco use date assessed: 12/05/24 Dental Screening Dental Screen Date: 12/05/24 Did you have a dental visit in the last 12 months?: Yes Did you have a dental problem in the last 6 months where you did not have access to dental care?: No Was dental information given to patient?: Patient has dentist HPI hld/tri/elevated liver enzymes HPI Details The patient is a 44-year-old male presenting for follow up of HLD, elevated triglycerides and liver enzymes Reports that his diet has been poor lately; his is close in giving and they have getting a lot of grab and go meals He also has not started taking the fish oil as yet, or keeping up with taking his vitamin D supplement As been taking the Fenofibrate, but inconsistent with the niacin The patient ALT came down some, but the his tri/t-chol/ldl all increased since last checked Has history of generalized muscle aches-but will to try statins Will start atorvastatin 10 mg at bedtime, encouraged take magnesium oxide 400mg at bedtime as well No chest pain/sob/heart palpitation or dizziness No abdominal pain/changes in bowel habits-hx of constipation, which has improved Denies urinary symptoms PFSH Medical History Tubular adenoma of colon HLD (hyperlipidemia) GERD (gastroesophageal reflux disease) Family history of colorectal cancer High triglycerides Surgical History Hx of blepharoplasty [place] teeth extracted Family History Maternal Grandmother Colon cancer Maternal Aunt Colon cancer Father Pancreatic adenoma Social History Housing: House Alcohol intake: current Alcohol intake frequency: holidays/special occasions only Comment: Socially typically. Pt typically has a few drinks/week. Patient Tobacco Use Status: Never used Tobacco e-Cigarette/Vaping Use: Never Used Substance Use Type: Marijuana service: No Current occupational status: employed Current occupational exposures/hazards: No Cognitive needs: No Hearing needs: No Vision needs: Yes (Glasses) Questionnaire Thrive Questionnaire Date Thrive assessed: 12/05/24 I am a: Patient What is your living situation today?: I have a steady place to live Within the past 12 months, did the food you bought not last and you didn't have the money to get more?: Never true Within the past 12 months, did you worry whether your food would run out before you got money to buy more?: Never true Do you have trouble paying for medicines?: No Do you have trouble getting transportation to medical appointments?: No Do you have trouble paying your heating and electricity bill?: No Do you have trouble taking care of your child, family member or friend?: No Do you have trouble with day-to-day activities such as bathing, preparing meals, shopping, managing finances, etc.?: No Are you currently unemployed and looking for a job?: No Are you interested in more education?: No Please select the resources that you would like help with: Job search/training Currently or been in a relationship where the following occur: No concerns reported THRIVE Score: 0 AUDIT C Alcohol Use Questionnaire (AUDIT-C) 1. How often do you have a drink containing alcohol?: Monthly or less 2. How many drinks containing alcohol do you have on a typical day when you are drinking?: 3 or 4 3. How often do you have six or more drinks on one occasion?: Never Total Score: 2 Score Reviewed/Action Taken: No ABDOUL-7 AMB Questionnaire ABDOUL-7 Date ABDOUL - 7 assessed: 12/05/24 Source: Developed by Drs. Dwayne Peres, Vilma Cantu, Alex Oneil and colleagues, with an educational avelino from [employer]. Review of Systems Const Denies headache(s) Eyes Denies loss of vision ENT Denies vertigo, Denies dizziness, Denies headache(s) and Denies sore throat Card Denies chest pain, Denies leg edema and Denies lightheadedness Resp Denies cough, Denies hemoptysis and Denies wheezing GI Denies abdominal pain, Denies melena, Denies constipation, Denies diarrhea and Denies vomiting Denies dysuria, Denies urinary frequency and Denies urinary urgency Musc Denies arthralgias, Denies joint swelling, Reports muscle weakness (generalized), Denies numbness and Denies tingling Neuro Denies vertigo, Denies dizziness, Denies headache(s), Denies loss of vision, Denies numbness and Denies tingling Ahsan/Lymph Denies easy bleeding and Denies easy bruising Aller/Immun Denies wheezing Physical exam (Primary Care) Vital Signs: Last Vital Signs Temp 98.7 F 12/05/24 12:57 Pulse 70 12/05/24 12:57 Resp 16 12/05/24 12:57 BP 96/54 L 12/05/24 12:57 Pulse Ox 95 12/05/24 12:57 Oxygen Delivery Method Room Air 12/05/24 12:57 BMI result Body Mass Index 33.4 Tobacco/Smoking Status: Tobacco use Status Tobacco use date assessed 12/05/24 12/05/24 13:07 Patient Tobacco Use Status Never used Tobacco 12/05/24 13:07 e-Cigarette/Vaping Use Never Used 12/05/24 13:07 Thrive Assessment: Date of Thrive Assessment Date Thrive assessed 12/05/24 12/05/24 13:07 Currently or been in a relationship where the following occur: No concerns reported Const General: healthy appearing, no acute distress, alert and awake Nutritional Appearance: well nourished Orientation/consciousness: oriented to person, oriented to place and oriented to time HENMT Ears: external ears normal General nose exam: Normal external nose present Eyes Conjunctivae: conjunctivae normal Sclerae: sclerae normal Neck Neck: Yes no lymphadenopathy and Yes no JVD Thyroid: Thyroid normal Carotids: no bruits Resp Effort & Inspection: normal respiratory effort and not tachypneic Auscultation: no crackles, no rales, no rhonchi and no wheezes Cardio Rate: regular rate Rhythm: regular rhythm Heart sounds: no murmurs and normal S1 and S2 GI Palpation (GI): Soft to palpation, nontender, no hepatomegaly and no splenomegaly Auscultation: normal bowel sounds Neuro General: oriented to person, oriented to place and oriented to time Gait exam (Neuro): Normal gait present Extrem Right upper extremity: full ROM Left upper extremity: full ROM Right lower extremity: full ROM; no edema Left lower extremity: full ROM; no edema Results AMB Hemoglobin A1c AMB Hemoglobin A1c 5.2 % Last Edit by Sarah Sanford CMA on 12/05/24 13:10 Results Reviewed Results Reviewed: Laboratory Last Values Hgb A1c (Clinic) 5.2 % (4.0-6.0) 12/05/24 13:08 Laboratory Tests 12/01/24 12/05/24 11:17 13:08 WBC 4.3 L RBC 4.74 Hgb 14.3 Hct 40.6 L MCV 85.7 MCH 30.2 RDW 12.5 Plt Count 208 Neut % (Auto) 50.5 Sodium 137 Potassium 4.2 Chloride 104 Carbon Dioxide 28 Anion Gap 9 L BUN 13 Creatinine 0.91 Estimated GFR > 60 Fasting Glucose 114 H Hgb A1c (Clinic) 5.2 Calcium 9.1 Total Bilirubin 0.7 AST 33 ALT 54 H Alkaline Phosphatase 54 Total Protein 6.3 L Triglycerides 205 H Cholesterol 236 H LDL Cholesterol, Calc 158 H HDL Cholesterol 37 L 25-OH Vitamin D Total 28.7 L TSH 1.10 Coding Level of Care Code Est Pt Level 3 (00672) Diagnoses Elevated liver transaminase level R74.01 Mixed hyperlipidemia E78.2 Hyperlipidemia type: mixed hyperlipidemia Vitamin D deficiency E55.9 Gastroesophageal reflux disease, unspecified whether esophagitis present K21.9 Esophagitis presence: esophagitis presence not specified Chronic idiopathic constipation K59.04 Constipation type: chronic idiopathic constipation Time Spent (min) 31 Assessment & Plan Assessment & Plan (1) Elevated liver transaminase level: Code(s): R74.01 - Elevation of levels of liver transaminase levels Category: Medical Plan: ALT came down some. Continue avoiding alcohol/Tylenol and keep working on lowering cholesterol. (2) HLD (hyperlipidemia): Code(s): E78.5 - Hyperlipidemia, unspecified Category: Medical Qualifiers: Hyperlipidemia type: mixed hyperlipidemia Qualified Code(s): E78.2 - Mixed hyperlipidemia Plan: Triglycerides, total cholesterol, and LDL increased since last checked. Endorsed poor dieting due to busy schedule. He is currently on fenofibrate 160 mg daily and niacin 500 mg daily. Patient reports that he has not been consistent with niacin but has been taking the fenofibrate 160 mg daily. The patient has a history of generalized muscle aches but he is willing to try statins. Atorvastatin 10 mg at bedtime ordered. Encouraged magnesium oxide 400 mg OTC at bedtime and we will recheck labs in 3 months (3) Vitamin D deficiency: Code(s): E55.9 - Vitamin D deficiency, unspecified Category: Medical Plan: Continue vitamin-D supplement which was decreased to 50 mcg daily (4) GERD (gastroesophageal reflux disease): Code(s): K21.9 - Gastro-esophageal reflux disease without esophagitis Category: Medical Qualifiers: Esophagitis presence: esophagitis presence not specified Qualified Code(s): K21.9 - Gastro-esophageal reflux disease without esophagitis Plan: Reinforced dietary restriction Continue esomeprazole magnesum 40 mg daily (5) Constipation: Code(s): K59.00 - Constipation, unspecified Category: Medical Qualifiers: Constipation type: chronic idiopathic constipation Qualified Code(s): K59.04 - Chronic idiopathic constipation Plan: Reports doing better. Continue increasing fluids and dietary fiber Orders: Orders AMB Hemoglobin A1c Today R73.01 - Impaired fasting glucose Glucose Fasting 3 Months E55.9 - Vitamin D deficiency, unspecified, E78.5 - Hyperlipidemia, unspecified, K21.9 - Gastro-esophageal reflux disease without esophagitis, R74.01 - Elevation of levels of liver transaminase levels Lipid Panel 3 Months E55.9 - Vitamin D deficiency, unspecified, E78.5 - Hyperlipidemia, unspecified, K21.9 - Gastro-esophageal reflux disease without esophagitis, R74.01 - Elevation of levels of liver transaminase levels UA CC w/rflx Micro + Cult 3 Months E55.9 - Vitamin D deficiency, unspecified, E78.5 - Hyperlipidemia, unspecified, K21.9 - Gastro-esophageal reflux disease without esophagitis, R74.01 - Elevation of levels of liver transaminase levels Vitamin D 25-OH Total 3 Months E55.9 - Vitamin D deficiency, unspecified, E78.5 - Hyperlipidemia, unspecified, K21.9 - Gastro-esophageal reflux disease without esophagitis, R74.01 - Elevation of levels of liver transaminase levels Comprehensive [place]. Panel Fast 3 Months E55.9 - Vitamin D deficiency, unspecified, E78.5 - Hyperlipidemia, unspecified, K21.9 - Gastro-esophageal reflux disease without esophagitis, R74.01 - Elevation of levels of liver transaminase levels Medications: New atorvastatin 10 mg PO BEDTIME 30 tabs 3RF Changed From cholecalciferol (vitamin D3) 100 mcg (2 x 50 mcg (2,000 unit)) PO DAILY 180 caps 3RF R79.89 - Other specified abnormal findings of blood chemistry To cholecalciferol (vitamin D3) 50 mcg PO DAILY 90 caps 3RF R79.89 - Other specified abnormal findings of blood chemistry On Hold niacin Hold Comment: Doctor's Order 500 mg PO DAILY 90 tabs 2RF E78.1 - Pure hyperglyceridemia fenofibrate Hold Comment: Doctor's Order 160 mg PO DAILY 90 tabs 2RF
[2024-12-05 12:57] VITALS: BP 96/54; PULSE 70; RESP 16; TEMP 37.1; O2SAT 95; BMI 33.4
--- OUTSIDE RECORDS SUMMARY | 2024-12-05 13:57 | XMS_ITS | Clinical Summary ---
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
== END 2024-12-05 13:32 | disposition home or self-care (01) ==
LOC: HO.HMCH 12:53
DX: R74.01 Elevation of levels of liver transaminase levels (principal); E78.2 Mixed hyperlipidemia; E55.9 Vitamin D deficiency, unspecified; K21.9 Gastro-esophageal reflux disease without esophagitis; K59.04 Chronic idiopathic constipation; R73.01 Impaired fasting glucose

== ENCOUNTER → 2024-12-05 12:52 | Outpatient (BNVA) | payer OTHER, SELFPAY | DX: R74.01 Elevation of levels of liver transaminase levels (principal); E78.2 Mixed hyperlipidemia; E55.9 Vitamin D deficiency, unspecified; K21.9 Gastro-esophageal reflux disease without esophagitis; K59.04 Chronic idiopathic constipation; Z79.899 Other long term (current) drug therapy | CPT/HCPCS: 83036 ==

== ENCOUNTER 2024-12-11 08:56 | Outpatient (AMB) | payer OTHER, SELFPAY ==
--- NOTE | 2024-12-11 08:58 | A.OFFVIS_ITS ---
Vital Signs 12/11/24 09:04 Height 5 ft 7 in Weight 214 lb BMI 33.5 BP 108/56 L Blood Pressure Location Lt brachial Position Sitting Pulse 60 Intake Visit Reasons: follow up Gallbladder US 12/05 Intake Note: Patient is seen in office for ultrasound results, following gallbladder. 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 States he believes the pain that he was seen for previously might have been a muscle strain due to some of the heavy lifting that he does at work. He reports he had a colonoscopy on 11/06/2024 in which a 2 cm polyp was removed. States he was also put on a bowel regimen which helped him become more regular with his bowel movements, so he states overall things are going pretty well. He denies right upper quadrant pain with food. Denies abdominal pain at rest. Denies fevers, chills/night sweats/weight loss. Denies nausea vomiting PFSH Medical History Tubular adenoma of colon HLD (hyperlipidemia) GERD (gastroesophageal reflux disease) Family history of colorectal cancer High triglycerides Surgical History Hx of blepharoplasty [place] teeth extracted Family History Maternal Grandmother Colon cancer Maternal Aunt Colon cancer Father Pancreatic adenoma Social History Housing: House Alcohol intake: current Alcohol intake frequency: holidays/special occasions only Comment: Socially typically. Pt typically has a few drinks/week. Patient Tobacco Use Status: Never used Tobacco e-Cigarette/Vaping Use: Never Used Substance Use Type: Marijuana service: No Current occupational status: employed Current occupational exposures/hazards: No Cognitive needs: No Hearing needs: No Vision needs: Yes (Glasses) Review of Systems Const Denies chills, Denies fever(s), Denies night sweats and Denies weight loss GI Reports as per HPI and Reports abdominal pain Physical Exam Vital Signs: Last Vital Signs Pulse 60 12/11/24 09:04 BP 108/56 L 12/11/24 09:04 BMI result Body Mass Index 33.5 Const General: healthy appearing, comfortable and no acute distress Orientation/consciousness: patient oriented x3 Resp Effort & Inspection: normal respiratory effort and able to speak in complete sentences GI Inspection: Yes normal to inspection and No distended Palpation (GI): Soft to palpation, nontender, no guarding and not rigid Neuro General: patient oriented x3 Assessment & Plan Assessment & Plan (1) Gallbladder polyp: Code(s): K82.4 - Cholesterolosis of gallbladder Category: Surgical Plan 44-year-old male presenting to the office to review ultrasound results for surveillance of a gallbladder polyp. Patient had ultrasound on 12/04/2024. I reviewed the images and impression, patient was found to have a stable 4 mm polyp in the gallbladder that is largely unchanged from previous imaging. Additionally there is no evidence of duct dilation, gallstones, wall thickening. Patient is doing well he has not had abdominal symptoms, he also denies fever, chills, night sweats, weight loss. He notes significant improvement in his bowel habits after colonoscopy he had earlier this year in which they removed a 2 cm polyp in the transverse colon. Abdominal exam soft benign. His current clinical picture is not suggestive of a biliary etiology for the abdominal pain he experienced. Patient have repeat surveillance imaging per current recommendations in 6 months and will follow-up to review in the office. Patient can follow-up as needed if he has any concerns prior to his next scheduled appointment Coding Level of Care Code Est Pt Level 3 (61916) Diagnoses Gallbladder polyp K82.4 Time Spent (min) 33
[2024-12-11 09:04] VITALS: BP 108/56; PULSE 60; BMI 33.5
--- OUTSIDE RECORDS SUMMARY | 2024-12-11 09:07 | XMS_ITS | Clinical Summary ---
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
== END 2024-12-11 09:14 | disposition home or self-care (01) ==
LOC: HO.HGS 08:56
DX: K82.4 Cholesterolosis of gallbladder (principal)
CPT/HCPCS: 99213

== ENCOUNTER 2025-03-08 11:04 | Outpatient (AMB) | payer OTHER, SELFPAY ==
[2025-03-08 11:12] VITALS: BP 110/60; PULSE 81; RESP 18; O2SAT 95; BMI 34.0
--- NOTE | 2025-03-08 11:12 | A.OFFPC_ITS ---
Vital Signs 03/08/25 11:12 Height 5 ft 7 in Weight 217 lb 2 oz BMI 34.0 BP 110/60 Blood Pressure Location Lt brachial Position Sitting Respiration 18 Pulse 81 Pulse Source Pulse Oximeter Temp Source Temporal Artery Scan Pulse Oximetry (%) 95 Oxygen Delivery Method Room Air Intake Visit Reasons: hld/elevated ALT/vit D deficiency Tail Dogger Required: No Accompanied by: Self / Same As Patient Allergies amoxicillin Allergy (Intermediate, Verified 03/08/25 11:39) Rash Penicillins Allergy (Intermediate, Verified 03/08/25 11:39) Rash atorvastatin Adverse Reaction (Severe, Verified 03/08/25 11:39) cramping Medication List - Last Reconciled 03/08/25 by FERNANDO Chávez cholecalciferol (vitamin D3) 50 mcg PO DAILY esomeprazole magnesium 40 mg PO DAILY fenofibrate 160 mg PO DAILY Held on 12/05/24. Instructions: Doctor's Order niacin 500 mg PO DAILY Held on 12/05/24. Instructions: Doctor's Order wheat dextrin (Benefiber Sugar Free (dextrin)) 1.5 grams PO BID Tobacco use date assessed: 03/08/25 Dental Screening Dental Screen Date: 03/08/25 Did you have a dental visit in the last 12 months?: No Did you have a dental problem in the last 6 months where you did not have access to dental care?: No Was dental information given to patient?: No HPI hld/elevated ALT/vit D deficiency HPI Details The patient is a 44-year-old male presenting for follow up appointment He is here with concerns related to hyperlipidemia management and adverse effects from statin use. Pre-ordered labs were not completed; however, since the patient had stopped the atorvastatin will have him check this in 3 months. The patient was previously switched from fenofibrate to a statin to manage his hyperlipidemia. However, he experienced severe muscle cramps and paresthesia, which led him to discontinue the statin prior to the of his child. He has since resumed fenofibrate therapy. ezetimibe 10 mg was added to the regimen The patient has been unable to complete his blood work due to the demands of caring for a . He expressed concern about his blood pressure, attributing potential elevation to lack of sleep and stress from caring for his colicky infant. [facility] Medical History Tubular adenoma of colon HLD (hyperlipidemia) GERD (gastroesophageal reflux disease) Family history of colorectal cancer High triglycerides Surgical History Hx of blepharoplasty [place] teeth extracted Family History Maternal Grandmother Colon cancer Maternal Aunt Colon cancer Father Pancreatic adenoma Social History Housing: House Alcohol intake: current Alcohol intake frequency: holidays/special occasions only Comment: Socially typically. Pt typically has a few drinks/week. Patient Tobacco Use Status: Never used Tobacco e-Cigarette/Vaping Use: Never Used Substance Use Type: Marijuana service: No Current occupational status: employed Current occupational exposures/hazards: No Cognitive needs: No Hearing needs: No Vision needs: Yes (Glasses) Questionnaire PHQ-9 Over the last 2 weeks, how often have you been bothered by any of the following problems? 1. Little interest or pleasure in doing things: not at all 2. Feeling down, depressed, or hopeless: not at all 3. Trouble falling or staying asleep, or sleeping too much: not at all 4. Feeling tired or having little energy: nearly every day 5. Poor appetite or overeating: several days 6. Feeling bad about yourself - or that you are a failure or have let yourself or your family down: not at all 7. Trouble concentrating on things, such as reading the newspaper or watching television: not at all 8. Moving or speaking so slowly that other people could have noticed. Or the opposite - being so fidgety or restless that you have been moving around a lot more than usual: not at all 9. Thoughts that you would be better off or of hurting yourself in some way: not at all Total score: 4 Depression Screening Interpretation: Positive Depression Screening Done: Yes Source: Developed by Drs. Dwayne Peres, Vilma Cantu, Alex Oneil and colleagues, with an educational avelino from [employer]. Thrive Questionnaire Date Thrive assessed: 03/08/25 I am a: Patient What is your living situation today?: I have a steady place to live Within the past 12 months, did the food you bought not last and you didn't have the money to get more?: Never true Within the past 12 months, did you worry whether your food would run out before you got money to buy more?: Never true Do you have trouble paying for medicines?: No Do you have trouble getting transportation to medical appointments?: No Do you have trouble paying your heating and electricity bill?: No Do you have trouble taking care of your child, family member or friend?: No Do you have trouble with day-to-day activities such as bathing, preparing meals, shopping, managing finances, etc.?: No Are you currently unemployed and looking for a job?: No Are you interested in more education?: No Please select the resources that you would like help with: Job search/training Currently or been in a relationship where the following occur: No concerns reported THRIVE Score: 0 AUDIT C Alcohol Use Questionnaire (AUDIT-C) 1. How often do you have a drink containing alcohol?: Monthly or less 2. How many drinks containing alcohol do you have on a typical day when you are drinking?: 3 or 4 3. How often do you have six or more drinks on one occasion?: Never Total Score: 2 Score Reviewed/Action Taken: No ABDOUL-7 AMB Questionnaire ABDOUL-7 Date ABDOUL - 7 assessed: 03/08/25 Source: Developed by Drs. Dwayne Peres, Vilma Cantu, Alex Oneil and colleagues, with an educational avelino from [employer]. Review of Systems Const Denies body aches, Denies chills, Denies fever(s), Denies headache(s) and Denies poor appetite Eyes Reports no additional complaints ENT Denies dysphagia, Denies dizziness, Denies headache(s) and Denies odynophagia Card Denies chest pain, Denies syncope, Denies edema, Denies irregular heart rhythm, Denies lightheadedness and Denies dyspnea Resp Denies cough and Denies dyspnea GI Denies abdominal pain, Denies constipation, Denies dysphagia, Denies diarrhea, Denies nausea, Denies odynophagia and Denies vomiting Reports no additional complaints Musc Reports no additional complaints and Denies abnormal gait Skin/Breast Reports system reviewed and no additional complaints, except as documented Neuro Denies abnormal gait, Denies dizziness, Denies syncope and Denies headache(s) Psych Reports no additional complaints Physical exam (Primary Care) Vital Signs: Last Vital Signs Pulse 81 03/08/25 11:12 Resp 18 03/08/25 11:12 BP 110/60 03/08/25 11:12 Pulse Ox 95 03/08/25 11:12 Oxygen Delivery Method Room Air 03/08/25 11:12 BMI result Body Mass Index 34.0 Tobacco/Smoking Status: Tobacco use Status Tobacco use date assessed 03/08/25 03/08/25 11:14 Patient Tobacco Use Status Never used Tobacco 03/08/25 11:14 e-Cigarette/Vaping Use Never Used 03/08/25 11:14 PHQ-9: PHQ-9 Score PHQ-9: Total score 4 03/08/25 11:52 Depression Screening Interpretation: Positive Thrive Assessment: Date of Thrive Assessment Date Thrive assessed 03/08/25 03/08/25 11:14 Currently or been in a relationship where the following occur: No concerns reported Const General: cooperative, healthy appearing, comfortable and no acute distress Orientation/consciousness: patient oriented x3 HENMT Head: Yes normocephalic Ears: hearing grossly normal bilaterally General nose exam: Normal external nose present Eyes General: appearance normal, both eyes and all related structures Conjunctivae: conjunctivae normal Neck Neck: Yes full ROM and Yes no lymphadenopathy Resp Effort & Inspection: normal respiratory effort Auscultation: clear to auscultation bilaterally, no crackles, no rales, no rhonchi and no wheezes Cardio Rate: regular rate Rhythm: regular rhythm Heart sounds: S1 normal heart sound present, S2 normal heart sound present and no murmurs Skin General skin exam: no rashes or lesions noted Neuro General: patient oriented x3 Gait exam (Neuro): Normal gait present Extrem General: Yes normal to inspection, Yes full ROM and No edema Psych Affect: normal affect Attitude: cooperative Insight: Good insight present (Psych) Judgement: Good judgement present (Psych) Coding Level of Care Code Est Pt Level 3 (85900) Diagnoses Chronic idiopathic constipation K59.04 Constipation type: chronic idiopathic constipation Low energy R53.83 High triglycerides E78.1 Elevated liver transaminase level R74.01 Vitamin D deficiency E55.9 Gastroesophageal reflux disease, unspecified whether esophagitis present K21.9 Esophagitis presence: esophagitis presence not specified Time Spent (min) 34 Assessment & Plan Assessment & Plan (1) Constipation: Code(s): K59.00 - Constipation, unspecified Category: Medical Qualifiers: Constipation type: chronic idiopathic constipation Qualified Code(s): K59.04 - Chronic idiopathic constipation Plan: Continue bisacodyl 10 mg at bedtime, methylcellulose fiber Increase fluids hydration Follow up with GI as scheduled (2) Low energy: Code(s): R53.83 - Other fatigue Category: Medical Plan: testosterone levels were normal and vitamin D was low Reports some improvement since being on vitamin-D supplement (3) High triglycerides: Code(s): E78.1 - Pure hyperglyceridemia Category: Medical Plan: Triglycerides 205, total cholesterol 236, LDL 158, HDL 37, 12/01/24 He is on fenofibrate 160 mg daily, which was placed on hold to the patient on atorvastatin 10 mg. Previously he was not able to tolerate statins. Encouraged increasing fluids intake and to start magnesium oxide 400 mg at bedtime. He was unable to tolerated the statin and started back on the fenofibrate, will add ezetimibe 10 mg to the regimen and the patient check lipid panel in 3 months (4) Elevated liver transaminase level: Code(s): R74.01 - Elevation of levels of liver transaminase levels Category: Medical Plan: ALT 54, 12/01/2024 limited alcohol and drugs containing tylenol intake Rechecked liver enzymes in 3 months (5) Vitamin D deficiency: Code(s): E55.9 - Vitamin D deficiency, unspecified Category: Medical Plan: Vitamin-D 28.7 Continue cholecalciferol 50 mcg daily (6) GERD (gastroesophageal reflux disease): Code(s): K21.9 - Gastro-esophageal reflux disease without esophagitis Category: Medical Qualifiers: Esophagitis presence: esophagitis presence not specified Qualified Code(s): K21.9 - Gastro-esophageal reflux disease without esophagitis Plan: Patient denies heartburn, reports that he is feeling much better since starting medication Reinforced dietary restrictions Continue esomeprazole magnesium 40 mg daily Plan Patient to return in 3 months, labs ordered for the patient to complete prior to this appointment Medications: New ezetimibe 10 mg PO DAILY 90 tabs 3RF FERNANDO Chávez Resumed fenofibrate 160 mg PO DAILY 90 tabs 2RF Silvina Ley, DRILLER HAND-BC
--- OUTSIDE RECORDS SUMMARY | 2025-03-08 12:14 | XMS_ITS | Clinical Summary ---
Author Organization [facility] ity Address [address] [place] [address] Care Team Providers Care Cement Car Dumper Name Role Phone Unavailable Primary Care Provider [...] season) 2024 Cholesterol Screening (Lipid Panel) 05/04/2024 HIV Screening 05/04/2024 Hepatitis C Screening 05/04/2024 Social Influencers of Health Screening 05/04/2024 Depression Screening 07/26/2024 Influenza Vaccine (#1) 2025 HIB Vaccines Aged Out No longer [...] 5 Years) and At-Risk Patients (6 to 49 Years) Aged Out No longer eligible b ased on patient's age to complete this topic RSV Immunization Patients Un sarahy 20 months Aged Out No longer eligible b ased on patient's age to complete this topic Varicella Vaccines Aged Out No longer eligible based on patient's age to complete this topic
== END 2025-03-08 11:50 | disposition home or self-care (01) ==
LOC: HO.HMCH 11:05
DX: K59.04 Chronic idiopathic constipation (principal); R53.83 Other fatigue; E78.1 Pure hyperglyceridemia; R74.01 Elevation of levels of liver transaminase levels; E55.9 Vitamin D deficiency, unspecified; K21.9 Gastro-esophageal reflux disease without esophagitis

== ENCOUNTER 2025-06-04 07:56 | Outpatient (REF) | payer OTHER, SELFPAY ==
--- NOTE | ~2025-06-04 | US_ITS ---
CLINICAL HISTORY: K82.4 - Cholesterolosis of gallbladder --- Additional Notes or Special Instructions: 6 month surveillance, gallbladder polyp US abdomen limited Comparison: US/SR - US ABDOMEN LIMITED - 12/04/24 09:07 EDT Findings: The visualized pancreatic head, aorta, and inferior vena cava are unremarkable. The liver is enlarged, right lobe length is 20 cm. Diffusely echogenic liver parenchyma, small geographic hypoechogenicity of the right lobe near gallbladder fossa, no suspicious hepatic lesion is seen. No bile duct dilatation. Common duct 4 mm diameter. Physiologic distention of the gallbladder, 4 mm polyp is seen, minimal debris noted in the gallbladder, no shadowing stone, no gallbladder wall thickening, negative sonographic Rose's sign. Main portal vein shows antegrade flow. Right kidney normal, 11.1 cm in length. No free fluid in the right upper quadrant of the abdomen. Impression: 1. 4 mm gallbladder polyp. 2. Hepatomegaly with diffuse steatosis and focal fatty sparing near gallbladder fossa. This document has been electronically signed by: Katherine Nolen MD on 06/05/2025 10:48:47
--- OUTSIDE RECORDS SUMMARY | 2025-06-04 08:01 | XMS_ITS | Clinical Summary ---
Author Organization [facility] ity Address [address] [place] [address] Care Team Providers Care Grease Packer Name Role Phone Unavailable Primary Care Provider Unavailabl e Social History Tobacco Use Types Packs/Day Years Used Date Smoking Tobacco: Never Assessed Sex and Gender Information Value Date Recorded Sex Assigned at Not on file Legal Sex Male 3:44 PM EDT Gender Identity Not on file Sexual Orientation Not on file Plan of Treatment Health Maintenance Due Date Last Done Comments Colorectal Cancer Screening: Colonoscopy 1980 DTaP,Tdap,and Td Vaccines (1 - Tdap) 1999 Hepatitis B Vaccines (1 of 3 - 19+ 3-dose series) 1999 HPV Vaccines (1 - 3-dose SCD M series) 2007 Cholesterol Screening (Lipid Panel) 05/04/2024 HIV Screening 05/04/2024 Hepatitis C Screening 05/04/2024 Social Influencers of Health Screening 05/04/2024 Depression Screening 07/26/2024 COVID-19 Vaccine ( - 2023-2 5 season) 2025 Influenza Vaccine (#1) 2025 RSV Immunization Adult Patie nts (1 - 1-dose 75+ series) 2055 HIB Vaccines Aged Out No longer eligi [...]
== END 2025-06-04 07:57 | disposition home or self-care (01) ==
LOC: HO.US 07:56
DX: K82.4 Cholesterolosis of gallbladder (principal)
CPT/HCPCS: 76705

== ENCOUNTER → 2025-06-04 07:58 | Outpatient (BNV) | payer OTHER, SELFPAY | PROVIDERS: Visit Provider Radiology Diagnostic Radiology | DX: K82.4 Cholesterolosis of gallbladder (principal); K76.0 Fatty (change of) liver, not elsewhere classified; R16.0 Hepatomegaly, not elsewhere classified; K82.8 Other specified diseases of gallbladder | CPT/HCPCS: 76705 ==

== ENCOUNTER 2025-06-08 09:42 | Outpatient (REF) | payer OTHER, SELFPAY ==
[2025-06-08 09:57] LABS: MANUAL DIFF FLAG NO
[2025-06-08 10:43] LABS: Appearance Urine Clear; Glucose Urine UA Negative (Negative); PH 8.5 (5.0-9.0); Specific Gravity - Urine 1.025 (1.005-1.025)
--- OUTSIDE RECORDS SUMMARY | 2025-06-08 10:52 | XMS_ITS | Clinical Summary ---
Author Organization [facility] ity Address [address] [place] [address] Care Team Providers Care Sales Development Specialist Name Role Phone Unavailable Primary Care Provider [...] Depression Screening 07/26/2024 COVID-19 Vaccine ( - 2024-2 6 season) 2025 Influenza Vaccine (#1) 2025 RSV [...]
[2025-06-08 11:01] LABS: Hematocrit 41.5 % (42.0-52.0); Hemoglobin 14.6 g/dl (14.0-18.0); Imm Gran Abs Auto 0.02 X10*3/uL (0.00-0.03); Imm Gran Pct Auto 0.4 % (0.0-0.4); Lymphocytes Absolute Auto 2.1 X10*3/uL (1.2-4.9); Mean Corpuscular HGB Conc 35.2 g/dl (31.0-36.0); Mean Corpuscular Hemoglobin 29.9 pg (27.0-33.0); Mean Corpuscular Volume 84.9 fL (80.0-98.0); NRBC Abs Auto 0.000 X10*3/uL (0.0-0.012); NRBC Pct Auto 0.0 /100WBC (0.0-0.2); Platelet Count 225 X10*3/uL (160-400); Red Blood Count 4.89 X10*6/uL (4.60-5.80); White Blood Count 5.1 X10*3/uL (4.8-10.8)
[2025-06-08 11:22] LABS: Alanine Aminotransferase 45 U/L (0-40); Albumin Level 4.5 g/dL (3.5-5.0); Alkaline Phosphatase 58 U/L (39-117); Anion Gap 11 (12-20); Aspartate Amino Transferase 34 U/L (5-37); Blood Urea Nitrogen 17 mg/dL (9-16); Calcium 9.3 mg/dL (8.4-10.2); Carbon Dioxide 27 mmol/L (22-29); Chloride 107 mmol/L (96-108); Cholesterol 200 mg/dL (<200); Estimated Glomerular Filt Rate > 60; HDL Cholesterol 37 mg/dL (>40); Potassium 4.0 mmol/L (3.3-5.1); Sodium 141 mmol/L (135-145); Total Protein 6.6 g/dL (6.5-8.0); Triglycerides 192 mg/dL (<150)
== END 2025-06-08 09:43 | disposition home or self-care (01) ==
LOC: HO.LAB 09:42
DX: E78.1 Pure hyperglyceridemia (principal); E78.5 Hyperlipidemia, unspecified; K21.9 Gastro-esophageal reflux disease without esophagitis; E55.9 Vitamin D deficiency, unspecified; R53.83 Other fatigue; R74.01 Elevation of levels of liver transaminase levels
CPT/HCPCS: 36415; 80053; 80061; 81003; 82306; 85025

== ENCOUNTER 2025-06-11 09:06 | Outpatient (AMB) | payer OTHER, SELFPAY ==
--- NOTE | 2025-06-11 09:11 | A.OFFVIS_ITS ---
Vital Signs 06/11/25 09:17 Height 5 ft 7 in Weight 216 lb 0.848 oz BMI 33.8 BP 110/70 Blood Pressure Location Lt brachial Position Sitting Intake Visit Reasons: 6mth fuv us gallbladder Intake Note: Patient is seen in office for 6 month follow up visit, following on gallbladder polyps. Pt c/o: admits to abdominal pain and diarrhea (random), also has a lump behind the right ear that would like to have evaluated, denies discharge, increase, onset a few months L.OV:12/11/24 Research Statistician Required: No Accompanied by: Self / Same As Patient Allergies amoxicillin Allergy (Intermediate, Verified 06/11/25 09:17) Rash Penicillins Allergy (Intermediate, Verified 06/11/25 09:17) Rash atorvastatin Adverse Reaction (Severe, Verified 06/11/25 09:17) cramping HPI HPI 6mth fuv us gallbladder: Details: Doing well however remains asymptomatic. Denies right upper quadrant pain with eating, denies nausea vomiting. Here to go over follow-up ultrasound results. [facility] Medical History Tubular adenoma of colon HLD (hyperlipidemia) GERD (gastroesophageal reflux disease) Family history of colorectal cancer High triglycerides Surgical History Hx of blepharoplasty [place] teeth extracted Family History Maternal Grandmother Colon cancer Maternal Aunt Colon cancer Father Pancreatic adenoma Social History Housing: House Alcohol intake: current Alcohol intake frequency: holidays/special occasions only Comment: Socially typically. Pt typically has a few drinks/week. Patient Tobacco Use Status: Never used Tobacco e-Cigarette/Vaping Use: Never Used Substance Use Type: Marijuana service: No Current occupational status: employed Current occupational exposures/hazards: No Cognitive needs: No Hearing needs: No Vision needs: Yes (Glasses) Physical Exam Vital Signs: Last Vital Signs BP 110/70 06/11/25 09:17 BMI result Body Mass Index 33.8 Const General: comfortable and no acute distress Resp Effort & Inspection: normal respiratory effort and able to speak in complete sentences Assessment & Plan Assessment & Plan (1) Gallbladder polyp: Code(s): K82.4 - Cholesterolosis of gallbladder Category: Surgical Plan 45-year-old male being followed for surveillance of gallbladder polyp returning to the office for routine six-month follow-up. He had ultrasound on 06/05/2025 showing stable 4 mm polyp. He is currently asymptomatic, denying any abdominal pain with diet, or at rest. We will continue with surveillance now annually per guidelines. We will obtain annual ultrasound of the gallbladder. Patient can follow up as needed sooner if become symptomatic were has any other concerns. Coding Level of Care Code Est Pt Level 3 (85877) Diagnoses Gallbladder polyp K82.4
[2025-06-11 09:17] VITALS: BP 110/70; BMI 33.8
--- OUTSIDE RECORDS SUMMARY | 2025-06-11 15:44 | XMS_ITS | Clinical Summary ---
Author Organization [facility] ity Address [address] [place] [address] Care Team Providers Care Human Resource Statistician Name Role Phone Unavailable Primary Care Provider [...]
== END 2025-06-11 09:29 | disposition home or self-care (01) ==
LOC: HO.HGS 09:07
DX: K82.4 Cholesterolosis of gallbladder (principal)
CPT/HCPCS: 99213

== ENCOUNTER 2025-06-12 09:38 | Outpatient (AMB) | payer OTHER, SELFPAY ==
[2025-06-12 09:49] VITALS: BP 120/70; PULSE 73; RESP 18; O2SAT 96; BMI 32.6
--- NOTE | 2025-06-12 09:49 | A.OFFPC_ITS ---
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 Instructions: Doctor's Order wheat dextrin (Benefiber Sugar Free (dextrin)) 1.5 grams PO BID Tobacco use date assessed: 06/12/25 Dental Screening Dental Screen Date: 06/12/25 Did you have a dental visit in the last 12 months?: No Did you have a dental problem in the last 6 months where you did not have access to dental care?: No Was dental information given to patient?: No HPI gerd/hld/vit D deficiency 3 month follow up HPI Details The patient is a 45-year-old male presenting for GERD, HLD,, vitamin-D deficiency, elevated liver enzymes follow up. The patient's history includes gastroesophageal reflux disease, which has been well-controlled, with him reporting his heartburn is now gone. He also has irritable bowel syndrome and notes a recent flare-up after eating rice, along with some minor constipation. His diet has been poor for several months, consisting of fast food, pizza, and deli meats, due to an ongoing kitchen renovation. Despite his diet, recent lab results for hyperlipidemia are reportedly trending in the right direction. Denies any chest pain, shortness of breath, heart palpitation or dizziness Denies any abdominal pain or change in bowel habits Denies any urinary symptoms [facility] Medical History Tubular adenoma of colon HLD (hyperlipidemia) GERD (gastroesophageal reflux disease) Family history of colorectal cancer High triglycerides Surgical History Hx of blepharoplasty [place] teeth extracted Family History Maternal Grandmother Colon cancer Maternal Aunt Colon cancer Father Pancreatic adenoma Social History Housing: House Alcohol intake: current Alcohol intake frequency: holidays/special occasions only Comment: Socially typically. Pt typically has a few drinks/week. Patient Tobacco Use Status: Never used Tobacco e-Cigarette/Vaping Use: Never Used Substance Use Type: Marijuana service: No Current occupational status: employed Current occupational exposures/hazards: No Cognitive needs: No Hearing needs: No Vision needs: Yes (Glasses) Questionnaire PHQ-9 Over the last 2 weeks, how often have you been bothered by any of the following problems? Depression Screening Interpretation: Positive Depression Screening Done: Yes Source: Developed by Drs. Dwayne Peres, Vilma Cantu, Alex Oneil and colleagues, with an educational avelino from [employer]. Thrive Questionnaire Date Thrive assessed: 06/12/25 I am a: Patient What is your living situation today?: I have a steady place to live Within the past 12 months, did the food you bought not last and you didn't have the money to get more?: Never true Within the past 12 months, did you worry whether your food would run out before you got money to buy more?: Never true Do you have trouble paying for medicines?: No Do you have trouble getting transportation to medical appointments?: No Do you have trouble paying your heating and electricity bill?: No Do you have trouble taking care of your child, family member or friend?: No Do you have trouble with day-to-day activities such as bathing, preparing meals, shopping, managing finances, etc.?: No Are you currently unemployed and looking for a job?: No Are you interested in more education?: No Please select the resources that you would like help with: Job search/training Currently or been in a relationship where the following occur: No concerns reported THRIVE Score: 0 ABDOUL-7 AMB Questionnaire ABDOUL-7 Date ABDOUL - 7 assessed: 03/08/25 Source: Developed by Drs. Dwayne Peres, Vilma Cantu, Alex Oneil and colleagues, with an educational avelino from [employer]. Review of Systems Const Denies body aches, Denies chills, Denies fever(s), Denies headache(s) and Denies poor appetite Eyes Reports no additional complaints ENT Denies dysphagia, Denies dizziness, Denies headache(s) and Denies odynophagia Card Denies chest pain, Denies syncope, Denies edema, Denies irregular heart rhythm, Denies lightheadedness and Denies dyspnea Resp Denies cough and Denies dyspnea GI Denies abdominal pain, Denies constipation, Denies dysphagia, Denies diarrhea, Denies nausea, Denies odynophagia and Denies vomiting Reports no additional complaints Musc Reports no additional complaints and Denies abnormal gait Skin/Breast Reports system reviewed and no additional complaints, except as documented Neuro Denies abnormal gait, Denies dizziness, Denies syncope and Denies headache(s) Psych Reports no additional complaints Physical exam (Primary Care) Vital Signs: Last Vital Signs Pulse 73 06/12/25 09:49 Resp 18 06/12/25 09:49 BP 120/70 06/12/25 09:49 Pulse Ox 96 06/12/25 09:49 Oxygen Delivery Method Room Air 06/12/25 09:49 BMI result Body Mass Index 32.6 Tobacco/Smoking Status: Tobacco use Status Tobacco use date assessed 06/12/25 06/12/25 09:57 Patient Tobacco Use Status Never used Tobacco 06/12/25 09:57 e-Cigarette/Vaping Use Never Used 06/12/25 09:57 Depression Screening Interpretation: Positive Thrive Assessment: Date of Thrive Assessment Date Thrive assessed 06/12/25 06/12/25 09:57 Currently or been in a relationship where the following occur: No concerns reported Const General: cooperative, healthy appearing, comfortable and no acute distress Orientation/consciousness: patient oriented x3 HENMT Head: Yes normocephalic Ears: hearing grossly normal bilaterally General nose exam: Normal external nose present Eyes General: appearance normal, both eyes and all related structures Conjunctivae: conjunctivae normal Neck Neck: Yes full ROM and Yes no lymphadenopathy Resp Effort & Inspection: normal respiratory effort Auscultation: clear to auscultation bilaterally, no crackles, no rales, no rhonchi and no wheezes Cardio Rate: regular rate Rhythm: regular rhythm Heart sounds: S1 normal heart sound present, S2 normal heart sound present and no murmurs Skin General skin exam: no rashes or lesions noted Neuro General: patient oriented x3 Gait exam (Neuro): Normal gait present Extrem General: Yes normal to inspection, Yes full ROM and No edema Psych Affect: normal affect Attitude: cooperative Insight: Good insight present (Psych) Judgement: Good judgement present (Psych) Results Reviewed Results Reviewed: Laboratory Tests 06/08/25 06/08/25 09:46 09:55 WBC 5.1 RBC 4.89 Hgb 14.6 Hct 41.5 L MCV 84.9 MCH 29.9 MCHC 35.2 RDW 11.9 Plt Count 225 Sodium 141 Potassium 4.0 Chloride 107 Carbon Dioxide 27 Anion Gap 11 L BUN 17 H Creatinine 0.94 Estimated GFR > 60 Fasting Glucose 108 H Calcium 9.3 Total Bilirubin 0.7 AST 34 ALT 45 H Alkaline Phosphatase 58 Total Protein 6.6 Albumin 4.5 Triglycerides 192 H Cholesterol 200 H LDL Cholesterol, Calc 125 H HDL Cholesterol 37 L 25-OH Vitamin D Total 29.8 L Urine Color Yellow Urine Appearance Clear Urine pH 8.5 Ur Specific [place] 1.025 Urine Protein Negative Urine Glucose (UA) Negative Urine Ketones Negative Urine Blood Negative Urine Nitrite Negative Ur Leukocyte Esterase Negative Coding Level of Care Code Est Pt Level 4 (16078) Diagnoses Chronic idiopathic constipation K59.04 Constipation type: chronic idiopathic constipation Low energy R53.83 High triglycerides E78.1 Elevated liver transaminase level R74.01 Vitamin D deficiency E55.9 Gastroesophageal reflux disease, unspecified whether esophagitis present K21.9 Esophagitis presence: esophagitis presence not specified Time Spent (min) 36 Assessment & Plan Assessment & Plan (1) Constipation: Code(s): K59.00 - Constipation, unspecified Category: Medical Qualifiers: Constipation type: chronic idiopathic constipation Qualified Code(s): K59.04 - Chronic idiopathic constipation Plan: Increase fiber in diet (fruits/vegetables 4-5 servings daily) Increase fluid intake and decrease caffeine/energy drinks (may cause mild dehydration) Encouraged regular exercise (e.g., biking, walking, running) Continue bisacodyl 10 mg at bedtime, methylcellulose fiber Follow up with GI as scheduled (2) Low energy: Code(s): R53.83 - Other fatigue Category: Medical Plan: testosterone levels were normal and vitamin D continues to be slightly low but has improved. The patient reports that he ran out of the medication over a week now. Cholecalciferol 50 mcg daily Refilled. (3) High triglycerides: Code(s): E78.1 - Pure hyperglyceridemia Category: Medical Plan: Triglycerides 192, total cholesterol 200, LDL 125, HDL 37 The patient LDL went from 158-125 and is triglycerides went from 205-192, HDL continues to be 37. Encouraged fish oil supplements. The patient was unable to tolerate statins and was placed on ezetimibe 10 mg daily. He was also ordered fenofibrate 160 mg daily and was told to stop the niacin 500 mg. Follow up in 4 months, we will repeat lipid panel (4) Elevated liver transaminase level: Code(s): R74.01 - Elevation of levels of liver transaminase levels Category: Medical Plan: ALT is decreased from 54 for 45, continue to be slightly elevated Limit the alcohol, Tylenol her meds containing Tylenol, fatty foods intake We will repeat CMP in 4 months (5) Vitamin D deficiency: Code(s): E55.9 - Vitamin D deficiency, unspecified Category: Medical Plan: Continue cholecalciferol 50 mcg daily (6) GERD (gastroesophageal reflux disease): Code(s): K21.9 - Gastro-esophageal reflux disease without esophagitis Category: Medical Qualifiers: Esophagitis presence: esophagitis presence not specified Qualified Code(s): K21.9 - Gastro-esophageal reflux disease without esophagitis Plan: Patient denies heartburn, reports that he is feeling much better since starting medication Reinforced dietary restrictions Continue esomeprazole magnesium 40 mg daily Plan Follow up in 4 months Orders: Orders Complete Blood Count Auto Diff 4 Months E55.9 - Vitamin D deficiency, unspecified, E78.2 - Mixed hyperlipidemia, K21.9 - Gastro-esophageal reflux disease without esophagitis, K82.4 - Cholesterolosis of gallbladder, R74.01 - Elevation of levels of liver transaminase levels Comprehensive [place]. Panel Fast 4 Months E55.9 - Vitamin D deficiency, u nspecified, E78.2 - Mixed hyperlipidemia, K21.9 - Gastro-esophageal reflux disease without esophagitis, K82.4 - Cholesterolosis of gallbladder, R74.01 - Elevation of levels of liver transaminase levels TSH reflex Free T4 4 Months E55.9 - Vitamin D deficiency, unspecified, E78.2 - Mixed hyperlipidemia, K21.9 - Gastro-esophageal reflux disease without esophagitis, K82.4 - Cholesterolosis of gallbladder, R74.01 - Elevation of levels of liver transaminase levels Hemoglobin A1c 4 Months E55.9 - Vitamin D deficiency, unspecified, E78.2 - Mixed hyperlipidemia, K21.9 - Gastro-esophageal reflux disease without esophagitis, K82.4 - Cholesterolosis of gallbladder, R74.01 - Elevation of levels of liver transaminase levels Lipid Panel 4 Months E55.9 - Vitamin D deficiency, unspecified, E78.2 - Mixed hyperlipidemia, K21.9 - Gastro-esophageal reflux disease without esophagitis, K82.4 - Cholesterolosis of gallbladder, R74.01 - Elevation of levels of liver transaminase levels UA CC w/rflx Micro + Cult 4 Months E55.9 - Vitamin D deficiency, unspecified, E78.2 - Mixed hyperlipidemia, K21.9 - Gastro-esophageal reflux disease without esophagitis, K82.4 - Cholesterolosis of gallbladder, R74.01 - Elevation of levels of liver transaminase levels Vitamin D 25-OH Total 4 Months E55.9 - Vitamin D deficiency, unspecified, E78.2 - Mixed hyperlipidemia, K21.9 - Gastro-esophageal reflux disease without esophagitis, K82.4 - Cholesterolosis of gallbladder, R74.01 - Elevation of levels of liver transaminase levels Medications: Refilled cholecalciferol (vitamin D3) 50 mcg PO DAILY 90 caps 3RF R79.89 - Other specified abnormal findings of blood chemistry
== END 2025-06-12 10:16 | disposition home or self-care (01) ==
LOC: HO.HMCH 09:39
DX: K59.04 Chronic idiopathic constipation (principal); R53.83 Other fatigue; E78.1 Pure hyperglyceridemia; R74.01 Elevation of levels of liver transaminase levels; E55.9 Vitamin D deficiency, unspecified; K21.9 Gastro-esophageal reflux disease without esophagitis